=== PATIENT | female | born 1975 | race Caucasian/White ===

== ENCOUNTER 2019-12-02 10:59 | Observation (INO) ==
[2019-12-02 11:41] LABS: Basophils # 0.1 10*3/uL (0.0-0.2); Basophils % 1.3 % (0.0-0.8); Eosinophils # 0.2 10*3/uL (0.0-0.87); Eosinophils % 3.1 % (0.00-10.9); Hematocrit 22.4 VOL% (35.7-47.0); Hemoglobin 6.8 GM/DL (12.0-16.0); Immature Granulocytes % 0.6 %; Immature Granulocytes Absolute 0.04 #; Lymphocytes # 0.4 10*3/uL (1.4-4.0); Lymphocytes % 6.4 % (21.3-54.2); Mean Corpuscular HGB Conc 30.4 GM/DL (32-36); Mean Corpuscular Volume 86.8 FL (87-102); Mean Platelet Volume 10.5 FL (9.6-12.0); Neutrophils % 80.6 % (38.7-73.9); Platelet Count 285 T/CUMM (130-400); Red Blood Count 2.58 MC/CUMM (3.8-5.5); Red Cell Distribution Width 18.4 % (9.3-17.3); White Blood Count 6.4 T/CUMM (4-12)
[2019-12-02 12:04] LABS: Albumin 2.3 G/DL (3.4-5.0); Bilirubin,Total 0.5 MG/DL (0.2-1.0); Calcium 8.9 MG/DL (8.5-10.1); Total Protein 7.7 G/DL (6.4-8.3)
[2019-12-02 12:28] LABS: % Iron Saturation 8.9 % (18-50)
[2019-12-02] MEDS ORDERED: ACETAMINOPHEN 325 MG TABLET PO PRN (12:37)
[2019-12-02] MEDS ORDERED: ONDANSETRON 4 MG/2 ML VIAL IV PRN (12:37)
[2019-12-02 12:40] LABS: Folate > 24.0 NG/ML (5.4-24.0); Vitamin B12 948 PG/ML (211-911)
[2019-12-02 13:22] LABS: PT Patient Result 11.1 SECS (9.6-12.2); Risk Ratio 4.36; VLDL CHOLESTEROL 23.4 MG/DL
[2019-12-02] MEDS ORDERED: ALBUTEROL 2.5 MG/3 ML NEB RESP TX PRN (14:02)
[2019-12-02] MEDS ORDERED: SODIUM CHLORIDE 0.9% 1,000 ML IV PRN ×2 (14:02→14:03)
[2019-12-02] MEDS: FUROSEMIDE 40 MG/4 ML VIAL IV SCH (15:39)
[2019-12-02] MEDS: cefTRIAXone 1,000 MG in SYRINGE 1 EACH IV SCH (15:39)
[2019-12-02] MEDS: POTASSIUM CHLORIDE RIDER 10 MEQ in PREMIX 1 EACH IV PRN ×4 (15:40→22:24)
[2019-12-02] MEDS: AZITHROMYCIN INJ 500 MG in SODIUM CHLORIDE 0.9% 250 ML IV SCH (15:40)
[2019-12-02] MEDS ORDERED: diphenhydrAMINE CAP 25 MG CAPSULE PO PRN (15:45)
[2019-12-02] MEDS: ALBUTEROL 2.5 MG/3 ML NEB RESP TX SCH (20:05)
[2019-12-03] MEDS: POTASSIUM CHLORIDE RIDER 10 MEQ in PREMIX 1 EACH IV PRN ×7 (00:27→17:53)
[2019-12-03] MEDS: ALBUTEROL 2.5 MG/3 ML NEB RESP TX SCH ×4 (00:42→19:20)
[2019-12-03] MEDS: URSODIOL PO SCH ×3 (00:54→21:30)
[2019-12-03 06:01] LABS: Basophils # 0.1 10*3/uL (0.0-0.2); Eosinophils # 0.3 10*3/uL (0.0-0.87); Eosinophils % 5.3 % (0.00-10.9); Hematocrit 23.5 VOL% (35.7-47.0); Hemoglobin 7.7 GM/DL (12.0-16.0); Immature Granulocytes % 0.3 %; Immature Granulocytes Absolute 0.02 #; Lymphocytes # 0.4 10*3/uL (1.4-4.0); Lymphocytes % 7.1 % (21.3-54.2); Mean Corpuscular HGB Conc 32.8 GM/DL (32-36); Mean Corpuscular Volume 86.1 FL (87-102); Mean Platelet Volume 10.7 FL (9.6-12.0); Monocytes % 9.4 % (1.7-12.7); Neutrophils % 76.9 % (38.7-73.9); Platelet Count 265 T/CUMM (130-400); Red Blood Count 2.73 MC/CUMM (3.8-5.5); Red Cell Distribution Width 17.9 % (9.3-17.3); White Blood Count 6.1 T/CUMM (4-12)
[2019-12-03 06:20] LABS: Calcium 8.5 MG/DL (8.5-10.1); Osmolality,Calculated 269.4 MOS/KG (273-304)
[2019-12-03 06:36] LABS: Ferritin 29.6 ng/ml (8-252)
[2019-12-03] MEDS ORDERED: SODIUM CHLORIDE 0.9% 1,000 ML IV PRN ×2 (06:40→16:28)
[2019-12-03 07:21] LABS: Sedimentation Rate-Westergren 132 MM/HR (0-20)
[2019-12-03] MEDS ORDERED: SPIRONOLACTONE 100 MG TABLET PO SCH (09:00)
[2019-12-03] MEDS ORDERED: SPIRONOLACTONE 50 MG TABLET PO SCH (09:00)
[2019-12-03 09:29] LABS: Folate > 24.0 NG/ML (5.4-24.0); Vitamin B12 847 PG/ML (211-911)
[2019-12-03] MEDS: FUROSEMIDE 40 MG/4 ML VIAL IV SCH (09:37)
[2019-12-03] MEDS: SPIRONOLACTONE 100 MG TABLET PO SCH (09:39)
[2019-12-03] MEDS: PANTOPRAZOLE 40 MG TABLET PO SCH (09:39)
[2019-12-03] MEDS: CHOLECALCIFEROL 1,000 UNIT TABLET PO SCH (09:40)
[2019-12-03] MEDS: POTASSIUM CHLORIDE 10 MEQ TABLET PO SCH (09:40)
[2019-12-03] MEDS: VENLAFAXINE XR 75 MG CAPSULE PO SCH (09:40)
[2019-12-03] MEDS: FERROUS SULFATE 325 MG TABLET PO SCH (09:40)
[2019-12-03] MEDS: BETA CAROTENE 25000 UNIT PO SCH (09:41)
[2019-12-03] MEDS ORDERED: IRON SUCROSE 300 MG in SODIUM CHLORIDE 0.9% 100 ML IV ONE (10:30)
[2019-12-03] MEDS: cefTRIAXone 1,000 MG in SYRINGE 1 EACH IV SCH (14:22)
[2019-12-03 15:18] LABS: Hematocrit 23.6 VOL% (35.7-47.0); Hemoglobin 7.6 GM/DL (12.0-16.0)
[2019-12-03] MEDS ORDERED: TISSUE ADHESIVE 1 EACH APPLICATOR TOP ONE (16:24)
[2019-12-03] MEDS: AZITHROMYCIN INJ 500 MG in SODIUM CHLORIDE 0.9% 250 ML IV SCH (17:53)
[2019-12-03] MEDS ORDERED: ZALEPLON 5 MG CAPSULE PO PRN (18:00)
[2019-12-03] MEDS: POLYETHYLENE GLYCOL POWDER 17 GM PACK PO SCH (22:46)
[2019-12-03] MEDS: DOCUSATE SODIUM 100 MG CAPSULE PO SCH (22:46)
[2019-12-04] MEDS: ALBUTEROL 2.5 MG/3 ML NEB RESP TX SCH ×3 (00:10→12:27)
[2019-12-04] MEDS ORDERED: LEVOTHYROXINE 25 MCG TABLET PO SCH (06:30)
[2019-12-04 08:53] LABS: Basophils # 0.1 10*3/uL (0.0-0.2); Eosinophils # 0.4 10*3/uL (0.0-0.87); Eosinophils % 5.2 % (0.00-10.9); Hematocrit 29.9 VOL% (35.7-47.0); Hemoglobin 9.5 GM/DL (12.0-16.0); Immature Granulocytes % 0.4 %; Immature Granulocytes Absolute 0.03 #; Lymphocytes # 0.4 10*3/uL (1.4-4.0); Lymphocytes % 6.1 % (21.3-54.2); Mean Corpuscular HGB Conc 31.8 GM/DL (32-36); Mean Corpuscular Volume 85.7 FL (87-102); Mean Platelet Volume 9.4 FL (9.6-12.0); Monocytes % 8.2 % (1.7-12.7); Neutrophils % 79.1 % (38.7-73.9); Platelet Count 322 T/CUMM (130-400); Red Blood Count 3.49 MC/CUMM (3.8-5.5); Red Cell Distribution Width 17.2 % (9.3-17.3); White Blood Count 6.9 T/CUMM (4-12)
[2019-12-04 09:00] LABS: Hemoglobin A1 (Alkaline) 97.9 % (96.5-98.5); Hemoglobin A2 (Alkaline) 2.1 % (1.5-3.5)
[2019-12-04] MEDS ORDERED: amLODIPine 5 MG TABLET PO SCH (09:00)
[2019-12-04] MEDS ORDERED: AZITHROMYCIN 250 MG TABLET PO SCH (09:00)
[2019-12-04 09:07] LABS: Calcium 8.3 MG/DL (8.5-10.1); Osmolality,Calculated 275.8 MOS/KG (273-304)
[2019-12-04] MEDS: BETA CAROTENE 25000 UNIT PO SCH (09:49)
[2019-12-04] MEDS: SPIRONOLACTONE 100 MG TABLET PO SCH (09:49)
[2019-12-04] MEDS: DOCUSATE SODIUM 100 MG CAPSULE PO SCH (09:50)
[2019-12-04] MEDS: VENLAFAXINE XR 75 MG CAPSULE PO SCH (09:50)
[2019-12-04] MEDS: FERROUS SULFATE 325 MG TABLET PO SCH (09:50)
[2019-12-04] MEDS: FUROSEMIDE 40 MG/4 ML VIAL IV SCH (09:51)
[2019-12-04] MEDS: POTASSIUM CHLORIDE 10 MEQ TABLET PO SCH (09:51)
[2019-12-04] MEDS: POLYETHYLENE GLYCOL POWDER 17 GM PACK PO SCH (09:51)
[2019-12-04] MEDS: PANTOPRAZOLE 40 MG TABLET PO SCH (09:52)
[2019-12-04] MEDS: URSODIOL PO SCH (09:52)
[2019-12-04] MEDS: CHOLECALCIFEROL 1,000 UNIT TABLET PO SCH (09:53)
[2019-12-04 12:50] VITALS: BP 151/80
[2019-12-04 15:17] LABS: Total Protein,Pleural Fluid 3.8 G/DL
[2019-12-04 17:58] LABS: Lymphocytes,Pleural Fluid 89 %; Monocytes,Pleural Fluid 5 %; Neutrophils,Pleural Fluid 6 %
[2019-12-04 18:00] LABS: RBC,Pleural Fluid 2546 T/CUMM
== END 2019-12-04 14:40 | disposition home health service (06) ==
LOC: N.ED 10:59 → N.EDINP 10:59 → N.2W 13:27
PROVIDERS: ADMIT Hospitalist; ATTEND Hospitalist
PROC: IRTHORA (2019-12-04 10:20)

== ENCOUNTER 2020-02-12 14:24 | Observation (INO) ==
[2020-02-12] MEDS ORDERED: PANTOPRAZOLE 40 MG VIAL IV STA (15:13)
[2020-02-12] MEDS ORDERED: ONDANSETRON 4 MG/2 ML VIAL IV STA (15:13)
[2020-02-12 15:53] LABS: Basophils # 0.1 10*3/uL (0.0-0.2); Basophils % 1.1 % (0.0-0.8); Eosinophils # 0.2 10*3/uL (0.0-0.87); Eosinophils % 3.2 % (0.00-10.9); Hematocrit 24.7 VOL% (35.7-47.0); Hemoglobin 7.2 GM/DL (12.0-16.0); Immature Granulocytes % 0.3 %; Immature Granulocytes Absolute 0.02 #; Lymphocytes # 0.6 10*3/uL (1.4-4.0); Lymphocytes % 8.6 % (21.3-54.2); Mean Corpuscular HGB Conc 29.1 GM/DL (32-36); Mean Corpuscular Volume 91.1 FL (87-102); Mean Platelet Volume 10.9 FL (9.6-12.0); Neutrophils % 80.8 % (38.7-73.9); Platelet Count 263 T/CUMM (130-400); Red Blood Count 2.71 MC/CUMM (3.8-5.5); Red Cell Distribution Width 16.5 % (9.3-17.3); White Blood Count 6.5 T/CUMM (4-12)
[2020-02-12 16:36] LABS: Alanine Aminotransferase 18 U/L (13-56); Albumin 2.5 G/DL (3.4-5.0); Alkaline Phosphatase 396 U/L (45-117); Amylase 81 U/L (25-115); Aspartate Amino Transferase 27 U/L (0-37); Blood Urea Nitrogen 23 MG/DL (7-18); Calcium 8.6 MG/DL (8.5-10.1); Estimated Glom Filtration Rate 61 ML/MIN; Glucose 93 MG/DL (74-106); Osmolality,Calculated 267.5 MOS/KG (273-304); Total Protein 7.3 G/DL (6.4-8.3); Troponin I 0.026 NG/ML (0.00-0.045)
[2020-02-12] MEDS ORDERED: ALBUTEROL/IPRATROPIUM 3 ML NEB RESP TX STA (16:46)
[2020-02-12] MEDS ORDERED: cefTRIAXone 1,000 MG in SODIUM CHLORIDE 0.9% 100 ML IV STA (16:46)
[2020-02-12] MEDS ORDERED: AZITHROMYCIN INJ 500 MG in SODIUM CHLORIDE 0.9% 250 ML IV STA (16:47)
[2020-02-12 17:39] LABS: Anisocytosis Slight; Macrocytosis Slight; Polychromasia Few
[2020-02-12 17:39] LABS: Apearance,Urine CLEAR (Clear); Bacteria,Urine Occasional /HPF (Few); Bilirubin,Urine Negative (Negative); Blood, Urine Negative (Negative); Glucose,Urine (UA) Negative (Negative); Hyaline Casts,Urine 1 /LPF (0-3); Ketones,Urine Negative (Negative); Mucus,Urine Occasional /LPF (Occasional); Nitrite,Urine Negative (Negative); Protein,Urine Negative; RBC,Urine 1 /HPF (0-4); Squamous Epithelial Cell,Urine Occasional /HPF (0-10); Urine Color Yellow (Yellow); Urine Specific Gravity 1.006 (1.001-1.035); Urine Urobilinogen < 2.0 EU/DL (0.2-1.0); WBC,Urine <1 /HPF (0-6)
[2020-02-12 17:40] LABS: Hypochromasia Slight; Platelet Estimate Adequate
[2020-02-12] MEDS ORDERED: ONDANSETRON 4 MG/2 ML VIAL IV PRN (18:38)
[2020-02-12] MEDS ORDERED: ALBUTEROL/IPRATROPIUM 3 ML NEB RESP TX PRN (18:38)
[2020-02-12] MEDS ORDERED: SODIUM CHLORIDE 0.9% 1,000 ML IV PRN (18:38)
[2020-02-12] MEDS ORDERED: MAGNESIUM SULF RIDER 4 GM in PREMIX 1 EACH IV PRN (18:44)
[2020-02-12] MEDS ORDERED: MAGNESIUM SULF RIDER 2 GM in PREMIX 1 EACH IV PRN (18:44)
[2020-02-12] MEDS ORDERED: ENOXAPARIN 30 MG/0.3 ML SYRINGE SUBCUT SCH (21:00)
[2020-02-12] MEDS: BENZONATATE 100 MG CAPSULE PO SCH (23:17)
[2020-02-13] MEDS: cefTRIAXone 1,000 MG in SYRINGE 1 EACH IV SCH ×2 (02:32→22:22)
[2020-02-13] MEDS: POTASSIUM CHLORIDE 20 MEQ TABLET PO PRN ×2 (05:03→06:36)
[2020-02-13] MEDS ORDERED: diphenhydrAMINE 50 MG/1 ML VIAL IV ONE ×2 (05:46→11:44)
[2020-02-13] MEDS ORDERED: PANTOPRAZOLE 40 MG TABLET PO SCH (09:00)
[2020-02-13 09:18] LABS: Basophils # 0.1 10*3/uL (0.0-0.2); Eosinophils # 0.3 10*3/uL (0.0-0.87); Eosinophils % 3.8 % (0.00-10.9); Hematocrit 25.7 VOL% (35.7-47.0); Hemoglobin 7.6 GM/DL (12.0-16.0); Immature Granulocytes % 0.3 %; Immature Granulocytes Absolute 0.02 #; Lymphocytes # 0.5 10*3/uL (1.4-4.0); Lymphocytes % 6.8 % (21.3-54.2); Mean Corpuscular HGB Conc 29.6 GM/DL (32-36); Mean Corpuscular Volume 93.1 FL (87-102); Monocytes % 8.2 % (1.7-12.7); Neutrophils % 79.9 % (38.7-73.9); Platelet Count 304 T/CUMM (130-400); Red Blood Count 2.76 MC/CUMM (3.8-5.5); Red Cell Distribution Width 15.9 % (9.3-17.3); White Blood Count 7.3 T/CUMM (4-12)
[2020-02-13] MEDS: BENZONATATE 100 MG CAPSULE PO SCH ×3 (09:18→20:52)
[2020-02-13 09:44] LABS: Albumin 2.4 G/DL (3.4-5.0); Bilirubin,Total 0.7 MG/DL (0.2-1.0); Calcium 8.8 MG/DL (8.5-10.1); Osmolality,Calculated 264.7 MOS/KG (273-304); Thyroid Stimulating Hormone 8.47 uIU/ml (0.358-3.74); Total Protein 7.5 G/DL (6.4-8.3)
[2020-02-13] MEDS ORDERED: ALBUTEROL 2.5 MG/3 ML NEB RESP TX PRN (11:35)
[2020-02-13] MEDS ORDERED: BETA CAROTENE 25000 UNIT PO SCH (11:45)
[2020-02-13 11:51] LABS: Hematocrit 26.7 VOL% (35.7-47.0); Hemoglobin 8.2 GM/DL (12.0-16.0)
[2020-02-13 12:36] LABS: INR 0.9
[2020-02-13 12:47] LABS: Albumin 2.4 G/DL (3.4-5.0); Bilirubin,Direct 0.2 MG/DL (0.0-0.20); Bilirubin,Indirect 0.3 MG/DL (0.0-1.0); Bilirubin,Total 0.5 MG/DL (0.2-1.0); Total Protein 7.4 G/DL (6.4-8.3)
[2020-02-13] MEDS: SPIRONOLACTONE 100 MG TABLET PO SCH ×2 (12:55→20:52)
[2020-02-13] MEDS: VENLAFAXINE XR 75 MG CAPSULE PO SCH (12:55)
[2020-02-13] MEDS: FUROSEMIDE 80 MG TABLET PO SCH (12:56)
[2020-02-13] MEDS: POTASSIUM CHLORIDE 20 MEQ TABLET PO SCH (12:56)
[2020-02-13] MEDS: RIFAXIMIN 550 MG TABLET PO SCH ×2 (12:56→20:53)
[2020-02-13] MEDS: FERROUS SULFATE 325 MG TABLET PO SCH (12:56)
[2020-02-13] MEDS: CHOLECALCIFEROL 1,000 UNIT TABLET PO SCH (12:57)
[2020-02-13] MEDS: VITAMIN A 8000 UNIT PO SCH (13:13)
[2020-02-13] MEDS ORDERED: methylPREDNISolone SOD SUC 40 MG/1 ML VIAL IV ONE (17:18)
[2020-02-13] MEDS ORDERED: URSODIOL PO SCH (19:00)
[2020-02-13] MEDS ORDERED: AZITHROMYCIN INJ 500 MG in SODIUM CHLORIDE 0.9% 250 ML IV SCH (19:00)
[2020-02-13] MEDS: LACTULOSE 20 GM/30 ML UDCUP PO SCH (20:52)
[2020-02-13] MEDS: PANTOPRAZOLE 40 MG TABLET PO SCH (20:53)
[2020-02-13] MEDS ORDERED: RIFAXIMIN 550 MG TABLET PO SCH (21:00)
[2020-02-13] MEDS ORDERED: ZALEPLON 5 MG CAPSULE PO SCH (21:00)
[2020-02-13] MEDS ORDERED: hydrOXYzine HCL 10 MG TABLET PO SCH (21:00)
[2020-02-14 05:46] LABS: Basophils % 0.5 % (0.0-0.8); Hematocrit 24.3 VOL% (35.7-47.0); Hemoglobin 7.4 GM/DL (12.0-16.0); Immature Granulocytes % 0.3 %; Immature Granulocytes Absolute 0.02 #; Lymphocytes # 0.3 10*3/uL (1.4-4.0); Lymphocytes % 4.6 % (21.3-54.2); Mean Corpuscular HGB Conc 30.5 GM/DL (32-36); Mean Corpuscular Volume 89.3 FL (87-102); Mean Platelet Volume 10.5 FL (9.6-12.0); Monocytes % 2.2 % (1.7-12.7); Neutrophils % 92.4 % (38.7-73.9); Platelet Count 268 T/CUMM (130-400); Red Blood Count 2.72 MC/CUMM (3.8-5.5); White Blood Count 5.9 T/CUMM (4-12)
[2020-02-14 06:01] LABS: Albumin 2.4 G/DL (3.4-5.0); Bilirubin,Total 0.5 MG/DL (0.2-1.0); Osmolality,Calculated 272.4 MOS/KG (273-304); Total Protein 7.6 G/DL (6.4-8.3)
[2020-02-14 06:24] LABS: Anisocytosis 2+; Hypochromasia 1+; Lymphocytes 4 % (20-55); Microcytosis 1+; Ovalocytes 1+; Platelet Estimate Adequate; Segmented Neutrophils 96 % (50-85); Total Cells Counted 100
[2020-02-14] MEDS ORDERED: LEVOTHYROXINE 25 MCG TABLET PO SCH (06:30)
[2020-02-14] MEDS ORDERED: amLODIPine 5 MG TABLET PO SCH (09:00)
[2020-02-14] MEDS ORDERED: URSODIOL PO SCH (09:00)
[2020-02-14] MEDS ORDERED: MULTIVITAMIN (CENTRUM) TABLET PO SCH (09:00)
[2020-02-14] MEDS ORDERED: AZITHROMYCIN 250 MG TABLET PO SCH (09:00)
[2020-02-14] MEDS: VITAMIN A 8000 UNIT PO SCH (09:46)
[2020-02-14] MEDS: BENZONATATE 100 MG CAPSULE PO SCH ×2 (09:46→16:22)
[2020-02-14] MEDS: VENLAFAXINE XR 75 MG CAPSULE PO SCH (09:46)
[2020-02-14] MEDS: SPIRONOLACTONE 100 MG TABLET PO SCH (09:47)
[2020-02-14] MEDS: POTASSIUM CHLORIDE 20 MEQ TABLET PO SCH (09:47)
[2020-02-14] MEDS: PANTOPRAZOLE 40 MG TABLET PO SCH (09:47)
[2020-02-14] MEDS: FUROSEMIDE 80 MG TABLET PO SCH (09:47)
[2020-02-14] MEDS: FERROUS SULFATE 325 MG TABLET PO SCH (09:47)
[2020-02-14] MEDS: CHOLECALCIFEROL 1,000 UNIT TABLET PO SCH (09:47)
[2020-02-14] MEDS: LACTULOSE 20 GM/30 ML UDCUP PO SCH (09:47)
[2020-02-14] MEDS: RIFAXIMIN 550 MG TABLET PO SCH (09:47)
[2020-02-14] MEDS ORDERED: SODIUM CHLORIDE 0.9% 1,000 ML IV PRN (11:06)
[2020-02-14] MEDS ORDERED: diphenhydrAMINE 50 MG/1 ML VIAL IV PRN (11:06)
[2020-02-14] MEDS ORDERED: ACETAMINOPHEN 325 MG TABLET PO PRN (11:06)
[2020-02-14 18:14] LABS: Hematocrit 26.6 VOL% (35.7-47.0); Hemoglobin 7.9 GM/DL (12.0-16.0)
[2020-02-14 18:40] VITALS: BP 146/76
== END 2020-02-14 19:03 | disposition home or self-care (01) ==
LOC: N.EDINP 14:24 → N.ED 14:24 → SUATTDRO 19:13 → N.EDINP 20:45 → N.5E 23:47
PROVIDERS: ADMIT Family Medicine; ATTEND Internal Medicine

== ENCOUNTER 2020-03-24 16:16 | Observation (INO) ==
[2020-03-24 17:30] LABS: Basophils # 0.1 10*3/uL (0.0-0.2); Basophils % 1.4 % (0.0-0.8); Eosinophils # 0.2 10*3/uL (0.0-0.87); Eosinophils % 3.6 % (0.00-10.9); Hematocrit 24.2 VOL% (35.7-47.0); Hemoglobin 7.2 GM/DL (12.0-16.0); Immature Granulocytes % 0.4 %; Immature Granulocytes Absolute 0.02 #; Lymphocytes # 0.5 10*3/uL (1.4-4.0); Lymphocytes % 9.2 % (21.3-54.2); Mean Corpuscular HGB Conc 29.8 GM/DL (32-36); Mean Corpuscular Volume 94.2 FL (87-102); Monocytes % 7.3 % (1.7-12.7); Neutrophils % 78.1 % (38.7-73.9); Platelet Count 305 T/CUMM (130-400); Red Blood Count 2.57 MC/CUMM (3.8-5.5); Red Cell Distribution Width 16.2 % (9.3-17.3); White Blood Count 5.6 T/CUMM (4-12)
[2020-03-24] MEDS ORDERED: SODIUM CHLORIDE 0.9% 1,000 ML IV PRN (17:33)
[2020-03-24 18:08] LABS: Albumin 2.7 G/DL (3.4-5.0); Bilirubin,Total 0.5 MG/DL (0.2-1.0); Osmolality,Calculated 263.7 MOS/KG (273-304); Total Protein 8.2 G/DL (6.4-8.3)
[2020-03-24] MEDS ORDERED: POTASSIUM CHLORIDE 20 MEQ TABLET PO PRN (20:08)
[2020-03-24] MEDS ORDERED: ALBUTEROL 2.5 MG/3 ML NEB RESP TX PRN (20:08)
[2020-03-24] MEDS ORDERED: ONDANSETRON 4 MG/2 ML VIAL IV PRN (20:08)
[2020-03-24] MEDS ORDERED: MAGNESIUM SULF RIDER 4 GM in PREMIX 1 EACH IV PRN (20:08)
[2020-03-24] MEDS ORDERED: MAGNESIUM SULF RIDER 2 GM in PREMIX 1 EACH IV PRN (20:08)
[2020-03-24] MEDS ORDERED: hydrOXYzine HCL 10 MG TABLET PO SCH (21:00)
[2020-03-24] MEDS ORDERED: NON-FORMULARY MEDICATION (Ursodiol 1,000 MG) PO SCH (21:00)
[2020-03-24] MEDS ORDERED: cefTRIAXone 1,000 MG in SYRINGE 1 EACH IV SCH (21:00)
[2020-03-24] MEDS: FERROUS SULFATE 325 MG TABLET PO SCH (22:12)
[2020-03-24] MEDS: SPIRONOLACTONE 100 MG TABLET PO SCH (22:12)
[2020-03-24] MEDS: PANTOPRAZOLE 40 MG TABLET PO SCH (22:13)
[2020-03-24] MEDS: diphenhydrAMINE 50 MG/1 ML VIAL IV PRN (23:20)
[2020-03-25] MEDS: diphenhydrAMINE 50 MG/1 ML VIAL IV PRN (06:01)
[2020-03-25] MEDS ORDERED: LEVOTHYROXINE 25 MCG TABLET PO SCH (06:30)
[2020-03-25 08:06] LABS: Basophils # 0.1 10*3/uL (0.0-0.2); Basophils % 1.1 % (0.0-0.8); Eosinophils # 0.2 10*3/uL (0.0-0.87); Hematocrit 25.9 VOL% (35.7-47.0); Hemoglobin 7.9 GM/DL (12.0-16.0); Immature Granulocytes % 0.3 %; Immature Granulocytes Absolute 0.02 #; Lymphocytes # 0.4 10*3/uL (1.4-4.0); Lymphocytes % 6.1 % (21.3-54.2); Mean Corpuscular HGB Conc 30.5 GM/DL (32-36); Mean Corpuscular Volume 91.2 FL (87-102); Mean Platelet Volume 8.9 FL (9.6-12.0); Monocytes % 9.4 % (1.7-12.7); Neutrophils % 80.1 % (38.7-73.9); Platelet Count 337 T/CUMM (130-400); Red Blood Count 2.84 MC/CUMM (3.8-5.5); Red Cell Distribution Width 16.6 % (9.3-17.3); White Blood Count 6.1 T/CUMM (4-12)
[2020-03-25 08:16] LABS: PT Patient Result 10.9 SECS (9.8-11.9)
[2020-03-25] MEDS ORDERED: hydrOXYzine HCL 25 MG TABLET PO PRN (08:23)
[2020-03-25 08:31] LABS: Calcium 8.6 MG/DL (8.5-10.1); Osmolality,Calculated 270.2 MOS/KG (273-304)
[2020-03-25] MEDS ORDERED: LINACLOTIDE 145 MCG CAPSULE PO SCH (09:00)
[2020-03-25] MEDS ORDERED: VITAMIN A 8000 UNIT PO SCH (09:00)
[2020-03-25] MEDS ORDERED: VENLAFAXINE XR 75 MG CAPSULE PO SCH (09:00)
[2020-03-25] MEDS ORDERED: MULTIVITAMIN (CENTRUM) TABLET PO SCH (09:00)
[2020-03-25] MEDS ORDERED: CHOLECALCIFEROL 1,000 UNIT TABLET PO SCH (09:00)
[2020-03-25] MEDS ORDERED: POTASSIUM CHLORIDE 10 MEQ TABLET PO SCH (09:00)
[2020-03-25] MEDS ORDERED: BETA CAROTENE 25000 UNIT PO SCH (09:00)
[2020-03-25] MEDS ORDERED: FUROSEMIDE 80 MG TABLET PO SCH (09:00)
[2020-03-25] MEDS ORDERED: amLODIPine 5 MG TABLET PO SCH (09:00)
[2020-03-25] MEDS ORDERED: AZITHROMYCIN 250 MG TABLET PO SCH (09:00)
[2020-03-25] MEDS: SPIRONOLACTONE 100 MG TABLET PO SCH (10:10)
[2020-03-25] MEDS: FERROUS SULFATE 325 MG TABLET PO SCH (10:10)
[2020-03-25] MEDS: PANTOPRAZOLE 40 MG TABLET PO SCH (10:11)
[2020-03-25 12:11] VITALS: BP 119/78
[2020-03-26] MEDS ORDERED: AZITHROMYCIN 250 MG TABLET PO SCH (09:00)
== END 2020-03-25 15:04 | disposition home or self-care (01) ==
LOC: N.ED 16:16 → N.EDINP 16:16 → N.3E 19:59
PROVIDERS: ADMIT Family Medicine; ATTEND Family Medicine

== ENCOUNTER 2020-05-31 08:03 | Inpatient (IN) ==
[2020-05-31 08:36] LABS: Basophils % 0.3 % (0.0-0.8); Eosinophils # 0.2 10*3/uL (0.0-0.87); Eosinophils % 3.2 % (0.00-10.9); Immature Granulocytes % 0.3 %; Immature Granulocytes Absolute 0.02 #; Lymphocytes # 0.6 10*3/uL (1.4-4.0); Mean Corpuscular HGB Conc 29.1 GM/DL (32-36); Mean Corpuscular Volume 94.4 FL (87-102); Mean Platelet Volume 10.1 FL (9.6-12.0); Monocytes % 8.1 % (1.7-12.7); Neutrophils % 78.1 % (38.7-73.9); Platelet Count 293 T/CUMM (130-400); Red Blood Count 1.42 MC/CUMM (3.8-5.5); Red Cell Distribution Width 16.2 % (9.3-17.3); White Blood Count 5.9 T/CUMM (4-12)
[2020-05-31] MEDS ORDERED: SODIUM CHLORIDE 0.9% 1,000 ML IV STA (08:43)
[2020-05-31] MEDS ORDERED: PANTOPRAZOLE 40 MG VIAL IV STA (08:43)
[2020-05-31] MEDS ORDERED: ONDANSETRON 4 MG/2 ML VIAL IV PRN (08:43)
[2020-05-31 08:47] LABS: Hematocrit 13.4 VOL% (35.7-47.0); Hemoglobin 3.9 GM/DL (12.0-16.0)
[2020-05-31 08:55] LABS: Alanine Aminotransferase 34 U/L (13-56); Albumin 2.1 G/DL (3.4-5.0); Alkaline Phosphatase 560 U/L (45-117); Aspartate Amino Transferase 60 U/L (0-37); Bilirubin,Total < 0.39 MG/DL (0.2-1.0); Blood Urea Nitrogen 40 MG/DL (7-18); Calcium 8.2 MG/DL (8.5-10.1); Estimated Glom Filtration Rate 52 ML/MIN; Glucose 112 MG/DL (74-106); Total Protein 6.7 G/DL (6.4-8.3)
[2020-05-31 09:07] LABS: Hypochromasia 1+; Microcytosis 1+; Platelet Estimate Normal; Polychromasia Slight
[2020-05-31 09:13] LABS: PT Patient Result 11.1 SECS (9.8-11.9); Partial Thromboplastin Time 23.8 SECS (23.9-33.8)
[2020-05-31] MEDS ORDERED: hydrALAZINE 20 MG/1 ML VIAL IV PRN (10:22)
[2020-05-31] MEDS ORDERED: guaiFENesin/DM ER 600-30 MG TABLET PO PRN (10:22)
[2020-05-31] MEDS ORDERED: ACETAMINOPHEN 325 MG TABLET PO PRN (10:22)
[2020-05-31] MEDS ORDERED: LORazepam 2 MG/1 ML VIAL ONE (10:26)
[2020-05-31] MEDS ORDERED: SODIUM CHLORIDE 0.9% 1,000 ML IV PRN (10:29)
[2020-05-31] MEDS ORDERED: LORazepam 2 MG/1 ML VIAL IV STA (10:37)
[2020-05-31 10:58] LABS: Risk Ratio 5.62; Thyroid Stimulating Hormone 17.1 uIU/ml (0.358-3.74); VLDL CHOLESTEROL 41.8 MG/DL
[2020-05-31 14:15] LABS: Apearance,Urine CLEAR (Clear); Bilirubin,Urine Negative (Negative); Blood, Urine Negative (Negative); Glucose,Urine (UA) Negative (Negative); Ketones,Urine Negative (Negative); Mucus,Urine Occasional /LPF (Occasional); Nitrite,Urine Negative (Negative); Protein,Urine Negative; Squamous Epithelial Cell,Urine Occasional /HPF (0-10); Urine Color Yellow (Yellow); Urine Specific Gravity 1.008 (1.001-1.035); Urine Urobilinogen < 2.0 EU/DL (0.2-1.0)
[2020-05-31] MEDS: diphenhydrAMINE CAP 25 MG CAPSULE PO PRN ×2 (16:45→21:50)
[2020-05-31] MEDS: FUROSEMIDE 40 MG/4 ML VIAL IV SCH (16:45)
[2020-05-31 17:53] LABS: Hemoglobin 5.8 GM/DL (12.0-16.0)
[2020-05-31] MEDS: FERROUS SULFATE 325 MG TABLET PO SCH (22:15)
[2020-05-31] MEDS: RIFAXIMIN 550 MG TABLET PO SCH (22:15)
[2020-05-31] MEDS: SPIRONOLACTONE 100 MG TABLET PO SCH (22:15)
[2020-05-31] MEDS: PANTOPRAZOLE 40 MG VIAL IV SCH (23:47)
[2020-06-01] MEDS ORDERED: OCTREOTIDE 100 MCG/ML SYRINGE IV ONE (01:00)
[2020-06-01] MEDS: OCTREOTIDE 500 MCG in SODIUM CHLORIDE 0.9% 100 ML IV SCH ×4 (01:20→22:50)
[2020-06-01 02:08] LABS: Basophils # 0.1 10*3/uL (0.0-0.2); Basophils % 1.1 % (0.0-0.8); Eosinophils # 0.3 10*3/uL (0.0-0.87); Eosinophils % 3.8 % (0.00-10.9); Hematocrit 20.7 VOL% (35.7-47.0); Immature Granulocytes % 0.4 %; Immature Granulocytes Absolute 0.03 #; Lymphocytes # 0.6 10*3/uL (1.4-4.0); Lymphocytes % 8.2 % (21.3-54.2); Mean Corpuscular HGB Conc 30.9 GM/DL (32-36); Mean Platelet Volume 9.9 FL (9.6-12.0); Monocytes % 13.6 % (1.7-12.7); NRBC # 0.07 10*3/uL; Neutrophils % 72.9 % (38.7-73.9); Platelet Count 224 T/CUMM (130-400); Red Cell Distribution Width 15.9 % (9.3-17.3)
[2020-06-01 02:11] LABS: Hemoglobin 6.4 GM/DL (12.0-16.0)
[2020-06-01] MEDS ORDERED: SODIUM CHLORIDE 0.9% 1,000 ML IV PRN ×2 (02:23→02:49)
[2020-06-01 02:29] LABS: Albumin 2.2 G/DL (3.4-5.0); Bilirubin,Total 1.1 MG/DL (0.2-1.0); Calcium 8.3 MG/DL (8.5-10.1); Osmolality,Calculated 282.8 MOS/KG (273-304); Total Protein 6.5 G/DL (6.4-8.3)
[2020-06-01] MEDS ORDERED: LEVOTHYROXINE 75 MCG TABLET PO SCH (07:00)
[2020-06-01] MEDS ORDERED: fentaNYL 100 MCG/2 ML VIAL ONE (07:15)
[2020-06-01] MEDS: LACTATED RINGERS 1,000 ML IV SCH (07:18)
[2020-06-01 07:31] LABS: Basophils # 0.1 10*3/uL (0.0-0.2); Basophils % 1.6 % (0.0-0.8); Eosinophils # 0.3 10*3/uL (0.0-0.87); Eosinophils % 4.7 % (0.00-10.9); Hematocrit 24.6 VOL% (35.7-47.0); Immature Granulocytes % 0.8 %; Immature Granulocytes Absolute 0.05 #; Lymphocytes # 0.4 10*3/uL (1.4-4.0); Lymphocytes % 7.2 % (21.3-54.2); Mean Corpuscular HGB Conc 31.7 GM/DL (32-36); Mean Corpuscular Volume 90.1 FL (87-102); Mean Platelet Volume 10.1 FL (9.6-12.0); Monocytes % 11.8 % (1.7-12.7); NRBC # 0.05 10*3/uL; Neutrophils % 73.9 % (38.7-73.9); Platelet Count 206 T/CUMM (130-400); Red Blood Count 2.73 MC/CUMM (3.8-5.5); Red Cell Distribution Width 16.1 % (9.3-17.3); White Blood Count 6.1 T/CUMM (4-12)
[2020-06-01 07:37] LABS: Hemoglobin 7.8 GM/DL (12.0-16.0)
[2020-06-01] MEDS ORDERED: ALBUTEROL INHALER 18 GM INH ONE (08:47)
[2020-06-01] MEDS ORDERED: LEVOTHYROXINE 50 MCG TABLET PO SCH (09:00)
[2020-06-01] MEDS ORDERED: SUCCINYLCHOLINE 200 MG/10 ML VIAL ONE (09:00)
[2020-06-01] MEDS ORDERED: POTASSIUM CHLORIDE 20 MEQ TABLET PO SCH (09:00)
[2020-06-01] MEDS ORDERED: ROCURONIUM 100 MG/10 ML VIAL IV ONE (09:00)
[2020-06-01] MEDS ORDERED: LIDOCAINE 2% 5 ML VIAL ONE (09:00)
[2020-06-01] MEDS ORDERED: VENLAFAXINE XR 75 MG CAPSULE PO SCH (09:00)
[2020-06-01] MEDS ORDERED: SEVOFLURANE 1 UNIT/15 MINUTE INH ONE (09:00)
[2020-06-01] MEDS ORDERED: propofoL 200 MG/20 ML VIAL IV ONE (09:00)
[2020-06-01] MEDS ORDERED: METOCLOPRAMIDE 10 MG/2 ML VIAL ONE (09:06)
[2020-06-01 10:22] LABS: ABG Base Excess -0.8 MMOL/L (-2.5-2.5); ABG HCO3 23.7 MMOL/L (20-26); ABG Oxygen Saturation 92.1 % (95-100); ABG PH 7.217 (7.35-7.45); ABG PO2 72.4 MM HG (80-95); ABG TCO2 26.7 MMOL/L (23-27); Allen Test Positive; Pt O2 Delivery Device Ventilator
[2020-06-01 10:24] LABS: ABG PCO2 69.3 MM HG (35-48)
[2020-06-01] MEDS ORDERED: CALCIUM GLUCONATE 1,000 MG in SODIUM CHLORIDE 0.9% 100 ML IV ONE (11:00)
[2020-06-01] MEDS: DEXMEDETOMIDINE 200 MCG in SODIUM CHLORIDE 0.9% 48 ML IV PRN (11:01)
[2020-06-01] MEDS ORDERED: FUROSEMIDE 40 MG/4 ML VIAL IV ONE (11:21)
[2020-06-01] MEDS ORDERED: PHENYLEPHRINE DRIP 40 MG/250 ML PREMIX IV ONE (11:23)
[2020-06-01] MEDS: PHENYLEPHRINE DRIP 40 MG/250 ML PREMIX IV PRN (11:25)
[2020-06-01] MEDS ORDERED: NOREPINEPHRINE 4 MG/4 ML VIAL IV ONE (11:28)
[2020-06-01] MEDS ORDERED: SODIUM BICARBONATE 50 MEQ/50 ML VIAL IV ONE ×2 (11:33→11:40)
[2020-06-01] MEDS ORDERED: MIDAZOLAM 10 MG/2 ML VIAL ONE (11:36)
[2020-06-01] MEDS ORDERED: LACTATED RINGERS 1,000 ML IV ONE (11:37)
[2020-06-01] MEDS ORDERED: MIDAZOLAM 2 MG/2 ML VIAL IV ONE ×2 (11:38→11:58)
[2020-06-01] MEDS ORDERED: ALBUMIN 25% 25 GM in PREMIX 1 EACH IV ONE (11:38)
[2020-06-01] MEDS ORDERED: VECURONIUM 10 MG VIAL IV ONE ×2 (11:55→12:15)
[2020-06-01] MEDS: FERROUS SULFATE 325 MG TABLET PO SCH ×2 (12:05→22:38)
[2020-06-01] MEDS: VENLAFAXINE 75 MG TABLET PER TUBE SCH ×2 (12:05→22:38)
[2020-06-01] MEDS: SPIRONOLACTONE 100 MG TABLET PO SCH ×2 (12:05→22:38)
[2020-06-01] MEDS: RIFAXIMIN 550 MG TABLET PO SCH ×2 (12:05→22:39)
[2020-06-01] MEDS: POTASSIUM CHLORIDE 20 MEQ/15 ML UDCUP PO SCH (12:06)
[2020-06-01 12:10] LABS: Basophils # 0.1 10*3/uL (0.0-0.2); Basophils % 1.7 % (0.0-0.8); Eosinophils # 0.2 10*3/uL (0.0-0.87); Eosinophils % 2.7 % (0.00-10.9); Hematocrit 27.4 VOL% (35.7-47.0); Hemoglobin 8.7 GM/DL (12.0-16.0); Immature Granulocytes % 0.7 %; Immature Granulocytes Absolute 0.06 #; Lymphocytes # 0.5 10*3/uL (1.4-4.0); Lymphocytes % 6.2 % (21.3-54.2); Mean Corpuscular HGB Conc 31.8 GM/DL (32-36); Mean Platelet Volume 10.8 FL (9.6-12.0); Monocytes % 3.4 % (1.7-12.7); Neutrophils % 85.3 % (38.7-73.9); Platelet Count 338 T/CUMM (130-400); Red Blood Count 3.01 MC/CUMM (3.8-5.5); Red Cell Distribution Width 16.6 % (9.3-17.3); White Blood Count 8.2 T/CUMM (4-12)
[2020-06-01 12:18] LABS: ABG Base Excess -0.3 MMOL/L (-2.5-2.5); ABG HCO3 23.9 MMOL/L (20-26); ABG Oxygen Saturation 80.4 % (95-100); ABG PCO2 56.5 MM HG (35-48); ABG PH 7.288 (7.35-7.45); ABG PO2 49.4 MM HG (80-95); ABG TCO2 25.2 MMOL/L (23-27)
[2020-06-01] MEDS: FUROSEMIDE 40 MG/4 ML VIAL IV SCH ×2 (12:27→17:43)
[2020-06-01 12:40] LABS: Albumin 2.3 G/DL (3.4-5.0); Bilirubin,Direct 0.48 MG/DL (0.0-0.20); Bilirubin,Indirect 0.5 MG/DL (0.0-1.0)
[2020-06-01] MEDS: CISATRACURIUM 200 MG in SODIUM CHLORIDE 0.9% 180 ML IV PRN (12:40)
[2020-06-01 12:50] LABS: Calcium 8.4 MG/DL (8.5-10.1); Osmolality,Calculated 289.5 MOS/KG (273-304)
[2020-06-01 13:16] LABS: PT Patient Result 11.1 SECS (9.8-11.9); Partial Thromboplastin Time 23.2 SECS (23.9-33.8)
[2020-06-01] MEDS: PIPERACILLIN/TAZOBACTAM 3,375 MG in SODIUM CHLORIDE 0.9% 100 ML IV SCH ×2 (15:47→23:41)
[2020-06-01] MEDS: LEVOTHYROXINE 100 MCG VIAL IV SCH (15:47)
[2020-06-01] MEDS: PANTOPRAZOLE 40 MG VIAL IV SCH ×2 (15:51→23:30)
[2020-06-01] MEDS: methylPREDNISolone SOD SUC 40 MG/1 ML VIAL IV SCH ×2 (15:58→23:32)
[2020-06-01] MEDS ORDERED: NOREPINEPHRINE 8 MG in SODIUM CHLORIDE 0.9% 242 ML IV PRN (16:33)
[2020-06-01] MEDS: METOCLOPRAMIDE 10 MG/2 ML VIAL IV SCH ×2 (17:48→23:39)
[2020-06-01 17:49] LABS: Hemoglobin 8.2 GM/DL (12.0-16.0)
[2020-06-01 18:46] LABS: Apearance,Urine CLEAR (Clear); Bacteria,Urine Occasional /HPF (Few); Bilirubin,Urine Negative (Negative); Blood, Urine Small mg/dL (Negative); Glucose,Urine (UA) Negative (Negative); Hyaline Casts,Urine 23 /LPF (0-3); Ketones,Urine Negative (Negative); Mucus,Urine Occasional /LPF (Occasional); Nitrite,Urine Negative (Negative); Protein,Urine Negative; RBC,Urine 5 /HPF (0-4); Squamous Epithelial Cell,Urine Occasional /HPF (0-10); Urine Color Yellow (Yellow); Urine Specific Gravity 1.008 (1.001-1.035); Urine Urobilinogen < 2.0 EU/DL (0.2-1.0); WBC,Urine 3 /HPF (0-6)
[2020-06-02] MEDS: CISATRACURIUM 200 MG in SODIUM CHLORIDE 0.9% 180 ML IV PRN (03:15)
[2020-06-02] MEDS: OCTREOTIDE 500 MCG in SODIUM CHLORIDE 0.9% 100 ML IV SCH ×5 (04:18→23:13)
[2020-06-02 05:04] LABS: Bilirubin,Total 1.1 MG/DL (0.2-1.0); Calcium 8.5 MG/DL (8.5-10.1); Osmolality,Calculated 294.4 MOS/KG (273-304); Total Protein 6.1 G/DL (6.4-8.3)
[2020-06-02 05:11] LABS: Basophils # 0.1 10*3/uL (0.0-0.2); Basophils % 0.5 % (0.0-0.8); Eosinophils % 0.1 % (0.00-10.9); Hematocrit 23.4 VOL% (35.7-47.0); Hemoglobin 7.9 GM/DL (12.0-16.0); Immature Granulocytes % 0.4 %; Immature Granulocytes Absolute 0.07 #; Lymphocytes # 0.7 10*3/uL (1.4-4.0); Lymphocytes % 3.8 % (21.3-54.2); Mean Corpuscular HGB Conc 33.8 GM/DL (32-36); Mean Platelet Volume 12.5 FL (9.6-12.0); Monocytes % 7.1 % (1.7-12.7); NRBC # 0.02 10*3/uL; Neutrophils % 88.1 % (38.7-73.9); Red Blood Count 2.66 MC/CUMM (3.8-5.5); Red Cell Distribution Width 17.9 % (9.3-17.3); White Blood Count 19.2 T/CUMM (4-12)
[2020-06-02 05:13] LABS: Platelet Count 189 T/CUMM (130-400)
[2020-06-02 05:38] LABS: ABG Base Excess 0.3 MMOL/L (-2.5-2.5); ABG HCO3 24.7 MMOL/L (20-26); ABG PCO2 35.4 MM HG (35-48); ABG PH 7.443 (7.35-7.45); ABG TCO2 22.7 MMOL/L (23-27)
[2020-06-02] MEDS: METOCLOPRAMIDE 10 MG/2 ML VIAL IV SCH ×4 (06:15→23:12)
[2020-06-02] MEDS: methylPREDNISolone SOD SUC 40 MG/1 ML VIAL IV SCH ×3 (06:17→21:20)
[2020-06-02] MEDS: PIPERACILLIN/TAZOBACTAM 3,375 MG in SODIUM CHLORIDE 0.9% 100 ML IV SCH ×3 (06:19→21:20)
[2020-06-02 06:20] LABS: Anisocytosis 1+; Band Neutrophils 13 % (0-10); Hypochromasia 1+; Lymphocytes 2 % (20-55); Metamyelocytes 1 %; Microcytosis 1+; Polychromasia Slight; Segmented Neutrophils 78 % (50-85); Total Cells Counted 100
[2020-06-02] MEDS: LACTATED RINGERS 1,000 ML IV SCH (07:29)
[2020-06-02] MEDS: PHENYLEPHRINE DRIP 40 MG/250 ML PREMIX IV PRN (08:15)
[2020-06-02] MEDS ORDERED: SODIUM CHLORIDE 0.9% 1,000 ML IV PRN ×2 (08:27→08:32)
[2020-06-02] MEDS: SPIRONOLACTONE 100 MG TABLET PO SCH (08:29)
[2020-06-02] MEDS: POTASSIUM CHLORIDE 20 MEQ/15 ML UDCUP PO SCH (08:30)
[2020-06-02] MEDS: FERROUS SULFATE 325 MG TABLET PO SCH ×2 (08:30→20:34)
[2020-06-02] MEDS: VENLAFAXINE 75 MG TABLET PER TUBE SCH ×2 (08:30→20:34)
[2020-06-02] MEDS: RIFAXIMIN 550 MG TABLET PO SCH ×2 (08:30→20:34)
[2020-06-02] MEDS ORDERED: EPINEPHrine 1 MG/ML VIAL ONE (08:39)
[2020-06-02] MEDS: FUROSEMIDE 40 MG/4 ML VIAL IV SCH (08:43)
[2020-06-02] MEDS: LEVOTHYROXINE 100 MCG VIAL IV SCH (08:46)
[2020-06-02] MEDS: PANTOPRAZOLE 40 MG VIAL IV SCH ×2 (08:46→09:17)
[2020-06-02 17:55] LABS: ABG Base Excess 1.7 MMOL/L (-2.5-2.5); ABG HCO3 25.9 MMOL/L (20-26); ABG Oxygen Saturation 99.9 % (95-100); ABG PCO2 39.7 MM HG (35-48); ABG PH 7.426 (7.35-7.45); ABG TCO2 24.3 MMOL/L (23-27)
[2020-06-02 17:58] LABS: Hematocrit 24.6 VOL% (35.7-47.0)
[2020-06-02] MEDS: fentaNYL INJ 1,250 MCG in SODIUM CHLORIDE 0.9% 225 ML IV PRN (19:34)
[2020-06-03 04:02] LABS: ABG Base Excess 2.8 MMOL/L (-2.5-2.5); ABG HCO3 26.9 MMOL/L (20-26); ABG PCO2 31.8 MM HG (35-48); ABG PH 7.514 (7.35-7.45); ABG TCO2 23.9 MMOL/L (23-27); Allen Test Positive; Pt O2 Delivery Device Ventilator
[2020-06-03 04:13] LABS: Basophils % 0.2 % (0.0-0.8); Hematocrit 22.8 VOL% (35.7-47.0); Hemoglobin 7.2 GM/DL (12.0-16.0); Immature Granulocytes % 0.2 %; Immature Granulocytes Absolute 0.02 #; Lymphocytes # 0.4 10*3/uL (1.4-4.0); Lymphocytes % 4.1 % (21.3-54.2); Mean Corpuscular HGB Conc 31.6 GM/DL (32-36); Mean Corpuscular Volume 91.2 FL (87-102); Mean Platelet Volume 11.2 FL (9.6-12.0); Monocytes % 6.1 % (1.7-12.7); Neutrophils % 89.4 % (38.7-73.9); Platelet Count 209 T/CUMM (130-400); Red Cell Distribution Width 16.3 % (9.3-17.3); White Blood Count 10.5 T/CUMM (4-12)
[2020-06-03 04:26] LABS: INR 1.1; PT Patient Result 11.5 SECS (9.8-11.9); Partial Thromboplastin Time 23.9 SECS (23.9-33.8)
[2020-06-03 04:28] LABS: Albumin 2.2 G/DL (3.4-5.0); Bilirubin,Total 0.9 MG/DL (0.2-1.0); Calcium 8.1 MG/DL (8.5-10.1); Total Protein 6.1 G/DL (6.4-8.3)
[2020-06-03 04:29] LABS: Albumin 2.2 G/DL (3.4-5.0); Bilirubin,Direct 0.47 MG/DL (0.0-0.20); Bilirubin,Indirect 0.3 MG/DL (0.0-1.0); Bilirubin,Total 0.8 MG/DL (0.2-1.0); Total Protein 5.7 G/DL (6.4-8.3)
[2020-06-03] MEDS: OCTREOTIDE 500 MCG in SODIUM CHLORIDE 0.9% 100 ML IV SCH ×4 (05:01→20:35)
[2020-06-03] MEDS: METOCLOPRAMIDE 10 MG/2 ML VIAL IV SCH ×3 (05:38→18:06)
[2020-06-03] MEDS: PIPERACILLIN/TAZOBACTAM 3,375 MG in SODIUM CHLORIDE 0.9% 100 ML IV SCH ×3 (05:39→22:21)
[2020-06-03] MEDS: methylPREDNISolone SOD SUC 40 MG/1 ML VIAL IV SCH ×3 (05:41→22:18)
[2020-06-03] MEDS: fentaNYL INJ 1,250 MCG in SODIUM CHLORIDE 0.9% 225 ML IV PRN ×2 (05:50→12:37)
[2020-06-03 07:17] LABS: Band Neutrophils 4 % (0-10); Hypochromasia 2+; Lymphocytes 2 % (20-55); Nucleated Red Blood Cells 1 (0-5); Platelet Estimate Normal; Segmented Neutrophils 90 % (50-85); Total Cells Counted 100
[2020-06-03] MEDS: RIFAXIMIN 550 MG TABLET PO SCH ×2 (08:03→21:35)
[2020-06-03] MEDS: FERROUS SULFATE 325 MG TABLET PO SCH ×2 (08:03→21:35)
[2020-06-03] MEDS: POTASSIUM CHLORIDE 20 MEQ/15 ML UDCUP PO SCH (08:03)
[2020-06-03] MEDS: VENLAFAXINE 75 MG TABLET PER TUBE SCH ×2 (08:03→21:35)
[2020-06-03] MEDS: PANTOPRAZOLE 40 MG VIAL IV SCH (08:16)
[2020-06-03] MEDS: FUROSEMIDE 40 MG/4 ML VIAL IV SCH (08:16)
[2020-06-03] MEDS: LEVOTHYROXINE 100 MCG VIAL IV SCH (08:17)
[2020-06-03] MEDS: POTASSIUM CHLORIDE RIDER 20 MEQ in PREMIX 1 EACH IV SCH ×2 (08:28→10:08)
[2020-06-03] MEDS ORDERED: CALCIUM GLUCONATE 1,000 MG in SODIUM CHLORIDE 0.9% 100 ML IV ONE (08:30)
[2020-06-03 14:09] LABS: Hematocrit 30.4 VOL% (35.7-47.0)
[2020-06-03 19:38] LABS: Hematocrit 31.7 VOL% (35.7-47.0); Hemoglobin 10.1 GM/DL (12.0-16.0)
[2020-06-03] MEDS ORDERED: DEXTROSE 50% 25 GM/50 ML VIAL IV ONE (23:21)
[2020-06-04] MEDS: METOCLOPRAMIDE 10 MG/2 ML VIAL IV SCH ×4 (00:20→18:08)
[2020-06-04] MEDS: PHENYLEPHRINE DRIP 40 MG/250 ML PREMIX IV PRN (02:30)
[2020-06-04] MEDS: OCTREOTIDE 500 MCG in SODIUM CHLORIDE 0.9% 100 ML IV SCH ×4 (02:51→16:00)
[2020-06-04 04:27] LABS: Hemoglobin 9.7 GM/DL (12.0-16.0)
[2020-06-04 05:02] LABS: ABG Base Excess 2.1 MMOL/L (-2.5-2.5); ABG HCO3 26.1 MMOL/L (20-26); ABG Oxygen Saturation 88.6 % (95-100); ABG PCO2 54.8 MM HG (35-48); ABG PH 7.332 (7.35-7.45); ABG PO2 61.2 MM HG (80-95); ABG TCO2 26.6 MMOL/L (23-27); Allen Test Positive; Pt O2 Delivery Device Ventilator
[2020-06-04] MEDS: methylPREDNISolone SOD SUC 40 MG/1 ML VIAL IV SCH ×3 (05:47→22:18)
[2020-06-04] MEDS: PIPERACILLIN/TAZOBACTAM 3,375 MG in SODIUM CHLORIDE 0.9% 100 ML IV SCH ×4 (05:50→22:20)
[2020-06-04] MEDS: LEVOTHYROXINE 100 MCG VIAL IV SCH (08:26)
[2020-06-04] MEDS: FUROSEMIDE 40 MG/4 ML VIAL IV SCH (08:26)
[2020-06-04] MEDS: PANTOPRAZOLE 40 MG VIAL IV SCH (08:27)
[2020-06-04] MEDS: FERROUS SULFATE 325 MG TABLET PO SCH ×2 (08:29→22:05)
[2020-06-04] MEDS: VENLAFAXINE 75 MG TABLET PER TUBE SCH ×2 (08:29→22:05)
[2020-06-04] MEDS: RIFAXIMIN 550 MG TABLET PO SCH ×2 (08:29→22:05)
[2020-06-04 08:42] LABS: Albumin 2.3 G/DL (3.4-5.0); Bilirubin,Total 0.9 MG/DL (0.2-1.0); Calcium 8.4 MG/DL (8.5-10.1); Osmolality,Calculated 306.4 MOS/KG (273-304); Total Protein 6.7 G/DL (6.4-8.3)
[2020-06-04 08:46] LABS: PT Patient Result 11.1 SECS (9.8-11.9)
[2020-06-04] MEDS: fentaNYL INJ 1,250 MCG in SODIUM CHLORIDE 0.9% 225 ML IV PRN ×2 (09:09→14:10)
[2020-06-04] MEDS ORDERED: LORazepam 2 MG/1 ML VIAL ONE (09:44)
[2020-06-04] MEDS ORDERED: LORazepam 2 MG/1 ML VIAL IV ONE (09:46)
[2020-06-04] MEDS: ALBUTEROL/IPRATROPIUM 3 ML NEB RESP TX SCH ×2 (12:41→19:30)
[2020-06-04] MEDS: ALBUMIN 25% 12.5 GM in PREMIX 1 EACH IV SCH (12:50)
[2020-06-04] MEDS: fentaNYL INJ 2,500 MCG in SODIUM CHLORIDE 0.9% 500 ML IV PRN (18:06)
[2020-06-05] MEDS: OCTREOTIDE 500 MCG in SODIUM CHLORIDE 0.9% 100 ML IV SCH ×2 (00:11→02:22)
[2020-06-05] MEDS: ALBUMIN 25% 12.5 GM in PREMIX 1 EACH IV SCH ×2 (00:12→11:30)
[2020-06-05] MEDS: METOCLOPRAMIDE 10 MG/2 ML VIAL IV SCH ×2 (00:21→05:59)
[2020-06-05] MEDS: ALBUTEROL/IPRATROPIUM 3 ML NEB RESP TX SCH ×4 (00:55→19:08)
[2020-06-05] MEDS: fentaNYL INJ 2,500 MCG in SODIUM CHLORIDE 0.9% 500 ML IV PRN ×3 (01:57→23:46)
[2020-06-05 03:56] LABS: Basophils % 0.1 % (0.0-0.8); Hematocrit 31.2 VOL% (35.7-47.0); Hemoglobin 9.9 GM/DL (12.0-16.0); Immature Granulocytes % 0.7 %; Immature Granulocytes Absolute 0.06 #; Lymphocytes # 0.5 10*3/uL (1.4-4.0); Lymphocytes % 4.9 % (21.3-54.2); Mean Corpuscular HGB Conc 31.7 GM/DL (32-36); Monocytes % 5.6 % (1.7-12.7); Neutrophils % 88.7 % (38.7-73.9); Platelet Count 197 T/CUMM (130-400); Red Blood Count 3.43 MC/CUMM (3.8-5.5); Red Cell Distribution Width 18.5 % (9.3-17.3); White Blood Count 9.2 T/CUMM (4-12)
[2020-06-05 04:20] LABS: Albumin 2.6 G/DL (3.4-5.0); Bilirubin,Total 1.2 MG/DL (0.2-1.0); Calcium 8.5 MG/DL (8.5-10.1); Osmolality,Calculated 309.1 MOS/KG (273-304); Total Protein 6.7 G/DL (6.4-8.3)
[2020-06-05 04:54] LABS: ABG Base Excess 3.5 MMOL/L (-2.5-2.5); ABG HCO3 27.1 MMOL/L (20-26); ABG Oxygen Saturation 76.9 % (95-100); ABG PCO2 41.7 MM HG (35-48); ABG PH 7.436 (7.35-7.45); ABG PO2 44.3 MM HG (80-95); ABG TCO2 24.8 MMOL/L (23-27); Allen Test Positive; Pt O2 Delivery Device Ventilator
[2020-06-05 05:43] LABS: ABG Base Excess 4.1 MMOL/L (-2.5-2.5); ABG HCO3 28.1 MMOL/L (20-26); ABG Oxygen Saturation 98.1 % (95-100); ABG PCO2 39.8 MM HG (35-48); ABG PH 7.458 (7.35-7.45); ABG PO2 99.5 MM HG (80-95); ABG TCO2 25.6 MMOL/L (23-27); Allen Test Positive; Pt O2 Delivery Device Ventilator
[2020-06-05] MEDS: methylPREDNISolone SOD SUC 40 MG/1 ML VIAL IV SCH ×2 (05:56→17:47)
[2020-06-05] MEDS: PIPERACILLIN/TAZOBACTAM 3,375 MG in SODIUM CHLORIDE 0.9% 100 ML IV SCH ×3 (06:01→22:36)
[2020-06-05 07:15] LABS: Band Neutrophils 3 % (0-10); Lymphocytes 8 % (20-55); Platelet Estimate Normal; Segmented Neutrophils 85 % (50-85); Smudge Cells Few; Total Cells Counted 100
[2020-06-05 07:16] LABS: Anisocytosis 2+; Burr Cells Few
[2020-06-05] MEDS: VENLAFAXINE 75 MG TABLET PER TUBE SCH ×2 (08:35→22:19)
[2020-06-05] MEDS: FERROUS SULFATE 325 MG TABLET PO SCH ×2 (08:35→22:19)
[2020-06-05] MEDS: RIFAXIMIN 550 MG TABLET PO SCH ×2 (08:36→22:20)
[2020-06-05] MEDS: LEVOTHYROXINE 100 MCG VIAL IV SCH (08:43)
[2020-06-05] MEDS: PANTOPRAZOLE 40 MG VIAL IV SCH (08:44)
[2020-06-05] MEDS: FUROSEMIDE 40 MG/4 ML VIAL IV SCH (08:44)
[2020-06-05] MEDS: MIDAZOLAM 100 MG in SODIUM CHLORIDE 0.9% 80 ML IV PRN (10:00)
[2020-06-05] MEDS: DEXMEDETOMIDINE 200 MCG in SODIUM CHLORIDE 0.9% 48 ML IV PRN ×3 (12:31→19:21)
[2020-06-05] MEDS: DEXMEDETOMIDINE 400 MCG in SODIUM CHLORIDE 0.9% 96 ML IV PRN (22:08)
[2020-06-06] MEDS: ALBUTEROL/IPRATROPIUM 3 ML NEB RESP TX SCH ×4 (00:34→19:39)
[2020-06-06] MEDS: ALBUMIN 25% 12.5 GM in PREMIX 1 EACH IV SCH ×2 (00:43→13:00)
[2020-06-06] MEDS: DEXMEDETOMIDINE 400 MCG in SODIUM CHLORIDE 0.9% 96 ML IV PRN (03:51)
[2020-06-06 04:00] LABS: Basophils % 0.2 % (0.0-0.8); Eosinophils % 0.3 % (0.00-10.9); Hematocrit 32.9 VOL% (35.7-47.0); Hemoglobin 9.9 GM/DL (12.0-16.0); Immature Granulocytes % 0.5 %; Immature Granulocytes Absolute 0.03 #; Lymphocytes # 0.6 10*3/uL (1.4-4.0); Lymphocytes % 10.6 % (21.3-54.2); Mean Corpuscular HGB Conc 30.1 GM/DL (32-36); Mean Corpuscular Volume 94.5 FL (87-102); Mean Platelet Volume 9.7 FL (9.6-12.0); Monocytes % 8.8 % (1.7-12.7); Neutrophils % 79.6 % (38.7-73.9); Platelet Count 207 T/CUMM (130-400); Red Blood Count 3.48 MC/CUMM (3.8-5.5); Red Cell Distribution Width 18.5 % (9.3-17.3); White Blood Count 5.9 T/CUMM (4-12)
[2020-06-06 04:17] LABS: Albumin 2.5 G/DL (3.4-5.0); Calcium 8.2 MG/DL (8.5-10.1); Osmolality,Calculated 308.9 MOS/KG (273-304); Total Protein 6.5 G/DL (6.4-8.3)
[2020-06-06 04:20] LABS: ABG Base Excess 3.5 MMOL/L (-2.5-2.5); ABG HCO3 27.5 MMOL/L (20-26); ABG Oxygen Saturation 97.5 % (95-100); ABG PCO2 35.3 MM HG (35-48); ABG PH 7.488 (7.35-7.45); ABG PO2 91.1 MM HG (80-95); ABG TCO2 24.2 MMOL/L (23-27); Allen Test Positive; Pt O2 Delivery Device Ventilator
[2020-06-06] MEDS: fentaNYL INJ 2,500 MCG in SODIUM CHLORIDE 0.9% 500 ML IV PRN (06:29)
[2020-06-06] MEDS: MIDAZOLAM 100 MG in SODIUM CHLORIDE 0.9% 80 ML IV PRN (06:34)
[2020-06-06] MEDS: methylPREDNISolone SOD SUC 40 MG/1 ML VIAL IV SCH ×2 (06:41→10:33)
[2020-06-06] MEDS: POTASSIUM CHLORIDE RIDER 10 MEQ in PREMIX 1 EACH IV SCH ×4 (06:42→10:31)
[2020-06-06] MEDS: PIPERACILLIN/TAZOBACTAM 3,375 MG in SODIUM CHLORIDE 0.9% 100 ML IV SCH ×3 (06:42→23:55)
[2020-06-06] MEDS ORDERED: DEXMEDETOMIDINE 400 MCG in DEXTROSE 5% 96 ML IV PRN (08:30)
[2020-06-06] MEDS ORDERED: fentaNYL INJ 2,500 MCG in DEXTROSE 5% 75 ML IV PRN (08:30)
[2020-06-06] MEDS: RIFAXIMIN 550 MG TABLET PO SCH ×2 (09:51→23:05)
[2020-06-06] MEDS: VENLAFAXINE 75 MG TABLET PER TUBE SCH ×2 (09:51→23:05)
[2020-06-06] MEDS: FERROUS SULFATE 325 MG TABLET PO SCH ×2 (09:51→23:05)
[2020-06-06] MEDS: PANTOPRAZOLE 40 MG VIAL IV SCH (10:30)
[2020-06-06] MEDS: LEVOTHYROXINE 100 MCG VIAL IV SCH (10:32)
[2020-06-06] MEDS: FUROSEMIDE 40 MG/4 ML VIAL IV SCH (10:35)
[2020-06-07] MEDS ORDERED: HALOPERIDOL 5 MG/ML AMP IM ONE (01:53)
[2020-06-07] MEDS: ALBUTEROL/IPRATROPIUM 3 ML NEB RESP TX SCH ×4 (03:18→19:34)
[2020-06-07] MEDS: ALBUMIN 25% 12.5 GM in PREMIX 1 EACH IV SCH ×2 (03:29→12:25)
[2020-06-07] MEDS ORDERED: LORazepam 2 MG/1 ML VIAL IV ONE (04:09)
[2020-06-07 04:27] LABS: ABG Base Excess 1.9 MMOL/L (-2.5-2.5); ABG Oxygen Saturation 98.2 % (95-100); ABG PCO2 43.9 MM HG (35-48); ABG PH 7.406 (7.35-7.45); ABG PO2 122.5 MM HG (80-95); ABG TCO2 28.3 MMOL/L (23-27); Allen Test Positive; Pt O2 Delivery Device Venturi Mask
[2020-06-07 04:33] LABS: Basophils % 0.3 % (0.0-0.8); Eosinophils # 0.1 10*3/uL (0.0-0.87); Eosinophils % 0.9 % (0.00-10.9); Hematocrit 36.9 VOL% (35.7-47.0); Hemoglobin 11.1 GM/DL (12.0-16.0); Immature Granulocytes % 0.6 %; Immature Granulocytes Absolute 0.06 #; Lymphocytes # 0.6 10*3/uL (1.4-4.0); Lymphocytes % 6.2 % (21.3-54.2); Mean Corpuscular HGB Conc 30.1 GM/DL (32-36); Mean Corpuscular Volume 96.3 FL (87-102); Mean Platelet Volume 10.3 FL (9.6-12.0); Monocytes % 8.4 % (1.7-12.7); Neutrophils % 83.6 % (38.7-73.9); Platelet Count 204 T/CUMM (130-400); Red Blood Count 3.83 MC/CUMM (3.8-5.5); Red Cell Distribution Width 18.5 % (9.3-17.3); White Blood Count 9.7 T/CUMM (4-12)
[2020-06-07 04:34] LABS: Albumin 2.8 G/DL (3.4-5.0); Bilirubin,Total 1.2 MG/DL (0.2-1.0); Calcium 8.6 MG/DL (8.5-10.1); Osmolality,Calculated 313.4 MOS/KG (273-304); Total Protein 7.2 G/DL (6.4-8.3)
[2020-06-07] MEDS: PIPERACILLIN/TAZOBACTAM 3,375 MG in SODIUM CHLORIDE 0.9% 100 ML IV SCH ×3 (07:21→23:32)
[2020-06-07] MEDS: methylPREDNISolone SOD SUC 40 MG/1 ML VIAL IV SCH (09:45)
[2020-06-07] MEDS: FUROSEMIDE 40 MG/4 ML VIAL IV SCH (09:46)
[2020-06-07] MEDS: PANTOPRAZOLE 40 MG VIAL IV SCH (09:49)
[2020-06-07] MEDS: VENLAFAXINE 75 MG TABLET PER TUBE SCH ×2 (10:27→22:14)
[2020-06-07] MEDS: FERROUS SULFATE 325 MG TABLET PO SCH ×2 (10:28→22:14)
[2020-06-07] MEDS: RIFAXIMIN 550 MG TABLET PO SCH ×2 (10:28→22:14)
[2020-06-07] MEDS: ZIPRASIDONE 20 MG/1 ML VIAL IM PRN (12:10)
[2020-06-07] MEDS: LEVOTHYROXINE 100 MCG VIAL IV SCH (12:21)
[2020-06-07] MEDS ORDERED: ZIPRASIDONE 20 MG/1 ML VIAL IM ONE (16:13)
[2020-06-08] MEDS: ALBUTEROL/IPRATROPIUM 3 ML NEB RESP TX SCH ×4 (00:57→19:20)
[2020-06-08 03:33] LABS: ABG Base Excess -1.2 MMOL/L (-2.5-2.5); ABG HCO3 23.4 MMOL/L (20-26); ABG Oxygen Saturation 97.8 % (95-100); ABG PCO2 41.8 MM HG (35-48); ABG PH 7.369 (7.35-7.45); ABG TCO2 21.6 MMOL/L (23-27); Allen Test Positive
[2020-06-08 04:44] LABS: Basophils % 0.4 % (0.0-0.8); Eosinophils # 0.1 10*3/uL (0.0-0.87); Eosinophils % 0.9 % (0.00-10.9); Hematocrit 38.8 VOL% (35.7-47.0); Immature Granulocytes % 0.9 %; Immature Granulocytes Absolute 0.09 #; Lymphocytes # 0.7 10*3/uL (1.4-4.0); Lymphocytes % 6.5 % (21.3-54.2); Mean Corpuscular HGB Conc 28.9 GM/DL (32-36); Mean Corpuscular Volume 98.7 FL (87-102); Mean Platelet Volume 10.4 FL (9.6-12.0); Monocytes % 9.9 % (1.7-12.7); Neutrophils % 81.4 % (38.7-73.9); Platelet Count 214 T/CUMM (130-400); Red Blood Count 3.93 MC/CUMM (3.8-5.5); Red Cell Distribution Width 18.2 % (9.3-17.3)
[2020-06-08 04:50] LABS: Albumin 2.8 G/DL (3.4-5.0); Bilirubin,Total 0.9 MG/DL (0.2-1.0); Calcium 8.8 MG/DL (8.5-10.1); Total Protein 7.3 G/DL (6.4-8.3)
[2020-06-08 05:25] LABS: Hemoglobin 11.2 GM/DL (12.0-16.0)
[2020-06-08 05:29] LABS: Hypochromasia 1+; Ovalocytes Slight; Platelet Estimate Adequate
[2020-06-08 05:30] LABS: Microcytosis Slight
[2020-06-08] MEDS: PIPERACILLIN/TAZOBACTAM 3,375 MG in SODIUM CHLORIDE 0.9% 100 ML IV SCH ×3 (06:35→21:01)
[2020-06-08] MEDS: PANTOPRAZOLE 40 MG VIAL IV SCH (09:00)
[2020-06-08] MEDS: DEXT 5% LACT RING KCL 20 MEQ 20 MEQ/1,000 ML BAG IV SCH ×2 (09:01→16:56)
[2020-06-08] MEDS: LEVOTHYROXINE 100 MCG VIAL IV SCH (09:01)
[2020-06-08] MEDS: methylPREDNISolone SOD SUC 40 MG/1 ML VIAL IV SCH (09:01)
[2020-06-08] MEDS: VENLAFAXINE 75 MG TABLET PER TUBE SCH ×2 (09:16→20:41)
[2020-06-08] MEDS: FUROSEMIDE 40 MG/4 ML VIAL IV SCH (09:26)
[2020-06-08] MEDS: FERROUS SULFATE 325 MG TABLET PO SCH ×2 (09:27→20:41)
[2020-06-08] MEDS: ZIPRASIDONE 20 MG/1 ML VIAL IM PRN (20:42)
[2020-06-09] MEDS: ALBUTEROL/IPRATROPIUM 3 ML NEB RESP TX SCH ×4 (00:29→19:19)
[2020-06-09 03:59] LABS: Calcium 8.9 MG/DL (8.5-10.1); Osmolality,Calculated 321.4 MOS/KG (273-304)
[2020-06-09] MEDS: DEXT 5% LACT RING KCL 20 MEQ 20 MEQ/1,000 ML BAG IV SCH (04:09)
[2020-06-09] MEDS ORDERED: ACETAMINOPHEN 500 MG TABLET PO PRN (06:47)
[2020-06-09] MEDS: DEXTROSE 5% NACL 0.22% 1,000 ML IV SCH ×3 (08:43→22:20)
[2020-06-09] MEDS: cefTRIAXone 1,000 MG in SYRINGE 1 EACH IV SCH (08:43)
[2020-06-09] MEDS: PANTOPRAZOLE 40 MG VIAL IV SCH (08:44)
[2020-06-09] MEDS: VENLAFAXINE 75 MG TABLET PER TUBE SCH ×2 (08:44→20:59)
[2020-06-09] MEDS: PROPRANOLOL 10 MG TABLET PO SCH ×2 (08:44→15:32)
[2020-06-09] MEDS: POTASSIUM CHLORIDE 20 MEQ/15 ML UDCUP PO SCH ×3 (08:44→20:59)
[2020-06-09] MEDS: LEVOTHYROXINE 100 MCG VIAL IV SCH (08:44)
[2020-06-09] MEDS: FERROUS SULFATE 325 MG TABLET PO SCH ×2 (08:49→20:59)
[2020-06-09] MEDS: ONDANSETRON 4 MG/2 ML VIAL IV PRN (23:25)
[2020-06-10] MEDS: ALBUTEROL/IPRATROPIUM 3 ML NEB RESP TX SCH ×4 (00:54→19:46)
[2020-06-10 06:25] LABS: Basophils % 0.6 % (0.0-0.8); Eosinophils # 0.7 10*3/uL (0.0-0.87); Eosinophils % 10.2 % (0.00-10.9); Hematocrit 34.6 VOL% (35.7-47.0); Hemoglobin 10.2 GM/DL (12.0-16.0); Immature Granulocytes % 0.5 %; Immature Granulocytes Absolute 0.03 #; Lymphocytes # 0.7 10*3/uL (1.4-4.0); Lymphocytes % 10.9 % (21.3-54.2); Mean Corpuscular HGB Conc 29.5 GM/DL (32-36); Mean Corpuscular Volume 97.2 FL (87-102); Mean Platelet Volume 11.4 FL (9.6-12.0); Monocytes % 7.6 % (1.7-12.7); Neutrophils % 70.2 % (38.7-73.9); Platelet Count 195 T/CUMM (130-400); Red Blood Count 3.56 MC/CUMM (3.8-5.5); Red Cell Distribution Width 17.4 % (9.3-17.3); White Blood Count 6.4 T/CUMM (4-12)
[2020-06-10] MEDS: DEXTROSE 5% NACL 0.22% 1,000 ML IV SCH ×2 (06:33→15:41)
[2020-06-10 07:59] LABS: Calcium 8.2 MG/DL (8.5-10.1); Osmolality,Calculated 293.8 MOS/KG (273-304)
[2020-06-10] MEDS: LEVOTHYROXINE 100 MCG VIAL IV SCH (09:25)
[2020-06-10] MEDS: PANTOPRAZOLE 40 MG VIAL IV SCH (09:25)
[2020-06-10] MEDS: FERROUS SULFATE 325 MG TABLET PO SCH ×2 (09:27→20:47)
[2020-06-10] MEDS: cefTRIAXone 1,000 MG in SYRINGE 1 EACH IV SCH (09:27)
[2020-06-10] MEDS: VENLAFAXINE 75 MG TABLET PER TUBE SCH ×2 (09:27→20:47)
[2020-06-10] MEDS: POTASSIUM CHLORIDE 20 MEQ/15 ML UDCUP PO SCH ×3 (09:27→20:46)
[2020-06-10] MEDS ORDERED: POTASSIUM CHLORIDE 20 MEQ/15 ML UDCUP PO PRN (15:14)
[2020-06-10] MEDS ORDERED: POTASSIUM CHLORIDE 10 MEQ TABLET PO ONE (15:38)
[2020-06-10] MEDS: POTASSIUM CHLORIDE 20 MEQ TABLET PO PRN ×2 (15:42→18:18)
[2020-06-10] MEDS: SPIRONOLACTONE 100 MG TABLET PO SCH ×4 (18:56→21:06)
[2020-06-10] MEDS: NON-FORMULARY MEDICATION (Ursodiol 1,000 MG) PO SCH ×5 (18:57→21:06)
[2020-06-10] MEDS: ZIPRASIDONE 20 MG/1 ML VIAL IM PRN (20:49)
[2020-06-11] MEDS: ALBUTEROL/IPRATROPIUM 3 ML NEB RESP TX SCH ×4 (01:19→20:21)
[2020-06-11 06:48] LABS: Basophils % 0.1 % (0.0-0.8); Hematocrit 27.5 VOL% (35.7-47.0); Hemoglobin 9.3 GM/DL (12.0-16.0); Immature Granulocytes % 0.7 %; Immature Granulocytes Absolute 0.17 #; Lymphocytes # 0.5 10*3/uL (1.4-4.0); Lymphocytes % 1.8 % (21.3-54.2); Mean Corpuscular HGB Conc 33.8 GM/DL (32-36); Mean Corpuscular Volume 102.6 FL (87-102); Mean Platelet Volume 10.4 FL (9.6-12.0); Monocytes % 3.4 % (1.7-12.7); NRBC # 0.03 10*3/uL; Platelet Count 313 T/CUMM (130-400); Red Blood Count 2.68 MC/CUMM (3.8-5.5); Red Cell Distribution Width 15.1 % (9.3-17.3)
[2020-06-11 07:11] LABS: Band Neutrophils 5 % (0-10); Hypochromasia 1+; Lymphocytes 1 % (20-55); Segmented Neutrophils 90 % (50-85); Total Cells Counted 100
[2020-06-11 07:12] LABS: Anisocytosis 1+; Macrocytosis 1+; Platelet Estimate Normal; Target Cells Slight
[2020-06-11] MEDS: LEVOTHYROXINE 100 MCG VIAL IV SCH (10:30)
[2020-06-11] MEDS: PANTOPRAZOLE 40 MG VIAL IV SCH (10:30)
[2020-06-11] MEDS: FERROUS SULFATE 325 MG TABLET PO SCH ×2 (10:31→21:18)
[2020-06-11] MEDS: cefTRIAXone 1,000 MG in SYRINGE 1 EACH IV SCH (10:31)
[2020-06-11] MEDS: VENLAFAXINE 75 MG TABLET PER TUBE SCH ×2 (10:32→21:18)
[2020-06-11] MEDS: POTASSIUM CHLORIDE 20 MEQ TABLET PO SCH ×3 (10:32→21:18)
[2020-06-11] MEDS: SPIRONOLACTONE 100 MG TABLET PO SCH (10:34)
[2020-06-11 11:02] LABS: Albumin 2.3 G/DL (3.4-5.0); Bilirubin,Total 0.6 MG/DL (0.2-1.0); Calcium 8.2 MG/DL (8.5-10.1); Osmolality,Calculated 292.6 MOS/KG (273-304); Total Protein 6.5 G/DL (6.4-8.3)
[2020-06-11] MEDS: POTASSIUM CHLORIDE 20 MEQ TABLET PO PRN ×2 (11:48→14:06)
[2020-06-11] MEDS: DEXTROSE 5% NACL 0.22% 1,000 ML IV SCH ×2 (15:10→18:06)
[2020-06-11] MEDS: ZIPRASIDONE 20 MG/1 ML VIAL IM PRN (16:19)
[2020-06-11] MEDS: ONDANSETRON 4 MG/2 ML VIAL IV PRN (21:26)
[2020-06-12] MEDS: ALBUTEROL/IPRATROPIUM 3 ML NEB RESP TX SCH ×4 (02:09→19:53)
[2020-06-12 06:22] LABS: Basophils % 0.8 % (0.0-0.8); Eosinophils # 0.3 10*3/uL (0.0-0.87); Eosinophils % 6.5 % (0.00-10.9); Hematocrit 36.6 VOL% (35.7-47.0); Immature Granulocytes Absolute 0.05 #; Lymphocytes # 0.6 10*3/uL (1.4-4.0); Lymphocytes % 11.7 % (21.3-54.2); Mean Corpuscular HGB Conc 30.1 GM/DL (32-36); Mean Corpuscular Volume 96.1 FL (87-102); Mean Platelet Volume 12.5 FL (9.6-12.0); Monocytes % 8.6 % (1.7-12.7); Neutrophils % 71.4 % (38.7-73.9); Red Cell Distribution Width 18.5 % (9.3-17.3)
[2020-06-12 07:50] LABS: Platelet Estimate Decreased
[2020-06-12 07:51] LABS: Platelet Count 143 T/CUMM (130-400); Red Blood Count 3.81 MC/CUMM (3.8-5.5); White Blood Count 4.8 T/CUMM (4-12)
[2020-06-12] MEDS: POTASSIUM CHLORIDE 20 MEQ TABLET PO SCH ×3 (09:36→20:01)
[2020-06-12] MEDS: VENLAFAXINE 75 MG TABLET PER TUBE SCH ×2 (09:36→20:01)
[2020-06-12] MEDS: FERROUS SULFATE 325 MG TABLET PO SCH ×2 (09:37→20:01)
[2020-06-12] MEDS: LEVOTHYROXINE 100 MCG VIAL IV SCH (09:37)
[2020-06-12] MEDS: cefTRIAXone 1,000 MG in SYRINGE 1 EACH IV SCH (09:38)
[2020-06-12] MEDS: PANTOPRAZOLE 40 MG VIAL IV SCH (09:38)
[2020-06-12] MEDS: DEXTROSE 5% NACL 0.22% 1,000 ML IV SCH ×2 (10:12→17:04)
[2020-06-12 11:55] LABS: Basophils # 0.1 10*3/uL (0.0-0.2); Basophils % 0.7 % (0.0-0.8); Eosinophils # 0.3 10*3/uL (0.0-0.87); Eosinophils % 4.9 % (0.00-10.9); Hematocrit 32.3 VOL% (35.7-47.0); Hemoglobin 9.9 GM/DL (12.0-16.0); Immature Granulocytes % 0.6 %; Immature Granulocytes Absolute 0.04 #; Lymphocytes # 0.6 10*3/uL (1.4-4.0); Lymphocytes % 8.6 % (21.3-54.2); Mean Corpuscular HGB Conc 30.7 GM/DL (32-36); Mean Corpuscular Volume 95.3 FL (87-102); Monocytes % 8.1 % (1.7-12.7); Neutrophils % 77.1 % (38.7-73.9); Platelet Count 202 T/CUMM (130-400); Red Blood Count 3.39 MC/CUMM (3.8-5.5); Red Cell Distribution Width 18.2 % (9.3-17.3); White Blood Count 6.9 T/CUMM (4-12)
[2020-06-12] MEDS ORDERED: LORazepam 2 MG/1 ML VIAL IV ONE (19:47)
[2020-06-13] MEDS: ALBUTEROL/IPRATROPIUM 3 ML NEB RESP TX SCH ×4 (01:23→19:11)
[2020-06-13] MEDS: ZIPRASIDONE 20 MG/1 ML VIAL IM PRN (02:05)
[2020-06-13] MEDS: DEXTROSE 5% NACL 0.22% 1,000 ML IV SCH ×3 (09:16→23:33)
[2020-06-13] MEDS: POTASSIUM CHLORIDE 20 MEQ TABLET PO SCH ×3 (09:35→20:33)
[2020-06-13] MEDS: VENLAFAXINE 75 MG TABLET PER TUBE SCH ×2 (09:35→20:33)
[2020-06-13] MEDS: FERROUS SULFATE 325 MG TABLET PO SCH ×2 (09:35→20:33)
[2020-06-13] MEDS: cefTRIAXone 1,000 MG in SYRINGE 1 EACH IV SCH (09:36)
[2020-06-13] MEDS: PANTOPRAZOLE 40 MG VIAL IV SCH (09:36)
[2020-06-13] MEDS: LEVOTHYROXINE 100 MCG VIAL IV SCH (09:37)
[2020-06-13 12:46] LABS: Basophils # 0.1 10*3/uL (0.0-0.2); Basophils % 0.7 % (0.0-0.8); Eosinophils # 0.3 10*3/uL (0.0-0.87); Eosinophils % 4.6 % (0.00-10.9); Hematocrit 36.9 VOL% (35.7-47.0); Hemoglobin 11.2 GM/DL (12.0-16.0); Immature Granulocytes % 0.4 %; Immature Granulocytes Absolute 0.03 #; Lymphocytes # 0.7 10*3/uL (1.4-4.0); Lymphocytes % 9.3 % (21.3-54.2); Mean Corpuscular HGB Conc 30.4 GM/DL (32-36); Mean Corpuscular Volume 96.6 FL (87-102); Mean Platelet Volume 12.4 FL (9.6-12.0); Monocytes % 8.5 % (1.7-12.7); Neutrophils % 76.5 % (38.7-73.9); Platelet Count 188 T/CUMM (130-400); Red Blood Count 3.82 MC/CUMM (3.8-5.5); Red Cell Distribution Width 19.3 % (9.3-17.3)
[2020-06-13 13:11] LABS: Calcium 8.6 MG/DL (8.5-10.1); Osmolality,Calculated 278.3 MOS/KG (273-304)
[2020-06-13] MEDS: diphenhydrAMINE CAP 25 MG CAPSULE PO PRN (21:29)
[2020-06-14] MEDS: ALBUTEROL/IPRATROPIUM 3 ML NEB RESP TX SCH ×3 (00:26→13:05)
[2020-06-14] MEDS: DEXTROSE 5% NACL 0.22% 1,000 ML IV SCH (05:12)
[2020-06-14] MEDS: PANTOPRAZOLE 40 MG VIAL IV SCH (09:16)
[2020-06-14] MEDS: cefTRIAXone 1,000 MG in SYRINGE 1 EACH IV SCH (09:16)
[2020-06-14] MEDS: LEVOTHYROXINE 100 MCG VIAL IV SCH (09:16)
[2020-06-14] MEDS: POTASSIUM CHLORIDE 20 MEQ TABLET PO SCH (09:17)
[2020-06-14] MEDS: VENLAFAXINE 75 MG TABLET PER TUBE SCH (09:17)
[2020-06-14] MEDS: FERROUS SULFATE 325 MG TABLET PO SCH (09:17)
[2020-06-14 11:32] VITALS: BP 107/66
== END 2020-06-14 14:07 | DRG 432 ==
LOC: N.ED 08:03 → N.EDINP 10:22 → SUATTDRO 10:22 → N.ICU 14:40 → N.2E 06-09 17:39 → N.4E 06-10 14:40
PROVIDERS: ADMIT Family Medicine; ATTEND Family Medicine

== ENCOUNTER 2022-06-09 17:07 | Inpatient (IN) ==
[2022-06-09] MEDS ORDERED: SODIUM CHLORIDE 0.9% 1,000 ML IV STA ×2 (17:39→20:04)
[2022-06-09] MEDS ORDERED: ONDANSETRON 4 MG/2 ML VIAL IV STA (17:39)
[2022-06-09 18:46] LABS: Albumin 2.7 G/DL (3.4-5.0); Basophils # 0.1 10*3/uL (0.0-0.2); Basophils % 0.5 % (0.0-0.8); Bilirubin,Total 2.6 MG/DL (0.20-1.00); Calcium 8.8 MG/DL (8.5-10.1); Eosinophils % 0.1 % (0.00-10.9); Hematocrit 31.4 VOL% (35.7-47.0); Hemoglobin 8.7 GM/DL (12.0-16.0); Immature Granulocytes % 0.9 %; Immature Granulocytes Absolute 0.22 #; Lymphocytes # 0.6 10*3/uL (1.4-4.0); Lymphocytes % 2.4 % (21.3-54.2); Mean Corpuscular HGB Conc 27.7 GM/DL (32-36); Mean Corpuscular Volume 70.4 FL (87-102); Mean Platelet Volume 11.1 FL (9.6-12.0); Monocytes # 1.4 10*3/uL (0.11-0.8); Monocytes % 5.7 % (1.7-12.7); NRBC # 0.43 10*3/uL; Neutrophils % 90.4 % (38.7-73.9); Osmolality,Calculated 265.2 MOS/KG (273-304); Platelet Count 589 T/CUMM (130-400); Potassium 4.8 MMOL/L (3.5-5.1); Red Blood Count 4.46 MC/CUMM (3.8-5.5); Red Cell Distribution Width 20.8 % (9.3-17.3); Total Protein 7.4 G/DL (6.4-8.2); White Blood Count 24.1 T/CUMM (4-12)
[2022-06-09 18:51] LABS: Anisocytosis 2+; Hypochromia 2+; Microcytosis 2+
[2022-06-09 18:52] LABS: Ovalocytes 1+; Platelet Estimate Increased; Poikilocytosis 1+; Target Cells 1+; Tear Drop Cells 1+
[2022-06-09 20:40] LABS: Hyaline Casts,Urine 20 /LPF (0-3); Mucus,Urine Occasional /LPF (Occasional); RBC,Urine 14 /HPF (0-4); Squamous Epithelial Cell,Urine Few /HPF (0-10)
[2022-06-09 20:41] LABS: Bilirubin,Urine Negative (Negative); Blood, Urine Trace mg/dL (Negative); Glucose,Urine (UA) Negative (Negative); Ketones,Urine Negative (Negative); Nitrite,Urine Negative (Negative); Protein,Urine >=300 mg/dL (Negative); Urine Appearance Clear (Clear); Urine Color Yellow (Yellow); Urine pH 5.5 (4.5-8.0)
[2022-06-09] MEDS ORDERED: DEXTROSE 10% 250 ML BAG IV PRN (20:53)
[2022-06-09] MEDS ORDERED: GLUCAGON 1 MG VIAL IM PRN (20:53)
[2022-06-09] MEDS ORDERED: ZALEPLON 5 MG CAPSULE PO PRN (20:53)
[2022-06-09] MEDS ORDERED: diphenhydrAMINE CAP 25 MG CAPSULE PO PRN (20:53)
[2022-06-09] MEDS ORDERED: hydrALAZINE 20 MG/1 ML VIAL IV PRN (20:53)
[2022-06-09] MEDS ORDERED: ACETAMINOPHEN 325 MG TABLET PO PRN (20:53)
[2022-06-09] MEDS ORDERED: guaiFENesin/DM ER 600-30 MG TABLET PO PRN (20:53)
[2022-06-09] MEDS ORDERED: NICOTINE 21 MG/24 HR PATCH TRANSDERM PRN (20:53)
[2022-06-10] MEDS ORDERED: cefTRIAXone 1,000 MG VIAL IM ONE (00:09)
[2022-06-10] MEDS ORDERED: AZITHROMYCIN 250 MG TABLET PO ONE (00:10)
[2022-06-10] MEDS: cefTRIAXone 1,000 MG in SODIUM CHLORIDE 0.9% 100 ML IV SCH ×2 (00:11→21:15)
[2022-06-10] MEDS: HEPARIN 5,000 UNIT/1 ML VIAL SUBCUT SCH ×3 (00:12→21:37)
[2022-06-10] MEDS: AZITHROMYCIN INJ 500 MG in SODIUM CHLORIDE 0.9% 250 ML IV SCH ×2 (00:12→22:00)
[2022-06-10] MEDS: ALBUTEROL/IPRATROPIUM 3 ML NEB RESP TX SCH ×4 (00:23→19:27)
[2022-06-10] MEDS: SODIUM CHLORIDE 0.9% 1,000 ML IV SCH ×3 (02:44→15:45)
[2022-06-10 06:48] LABS: Albumin 2.6 G/DL (3.4-5.0); Bilirubin,Total 2.3 MG/DL (0.20-1.00); Calcium 8.5 MG/DL (8.5-10.1); Osmolality,Calculated 266.4 MOS/KG (273-304); Risk Ratio 9.36; Total Protein 7.1 G/DL (6.4-8.2); VLDL Cholesterol 26.6 MG/DL
[2022-06-10 06:48] LABS: Folate 11.93 NG/ML (5.38-24.0); Vitamin B12 > 2000 PG/ML (211-911)
[2022-06-10 06:55] LABS: Basophils # 0.1 10*3/uL (0.0-0.2); Basophils % 0.5 % (0.0-0.8); Eosinophils % 0.1 % (0.00-10.9); Hematocrit 27.5 VOL% (35.7-47.0); Hemoglobin 7.8 GM/DL (12.0-16.0); Immature Granulocytes % 0.7 %; Immature Granulocytes Absolute 0.09 #; Lymphocytes # 0.5 10*3/uL (1.4-4.0); Lymphocytes % 3.9 % (21.3-54.2); Mean Corpuscular HGB Conc 28.4 GM/DL (32-36); Mean Corpuscular Volume 69.8 FL (87-102); Mean Platelet Volume 10.6 FL (9.6-12.0); Monocytes # 0.9 10*3/uL (0.11-0.8); Monocytes % 6.6 % (1.7-12.7); NRBC # 0.15 10*3/uL; Neutrophils % 88.2 % (38.7-73.9); Red Blood Count 3.94 MC/CUMM (3.8-5.5); Red Cell Distribution Width 19.9 % (9.3-17.3)
[2022-06-10 06:59] LABS: Platelet Count 383 T/CUMM (130-400); White Blood Count 12.8 T/CUMM (4-12)
[2022-06-10 07:01] LABS: Hypochromia 1+; Lymphocytes 2 % (20-55); Microcytosis 2+; Polychromasia Slight; Total Cells Counted 100
[2022-06-10 07:02] LABS: Ovalocytes Few; Target Cells Few
[2022-06-10 07:05] LABS: Sedimentation Rate-Westergren 63 MM/HR (0-20)
[2022-06-10] MEDS: PANTOPRAZOLE 40 MG TABLET PO SCH (09:38)
[2022-06-10] MEDS ORDERED: ALBUTEROL 2.5 MG/3 ML NEB RESP TX PRN (15:40)
[2022-06-10] MEDS: LACTULOSE 20 GM/30 ML UDCUP PO SCH ×3 (16:22→21:36)
[2022-06-10] MEDS: FERROUS SULFATE 325 MG TABLET PO SCH (21:36)
[2022-06-10] MEDS: hydrOXYzine HCL 10 MG TABLET PO SCH (21:36)
[2022-06-10] MEDS: RIFAXIMIN 550 MG TABLET PO SCH (21:37)
[2022-06-10] MEDS: ONDANSETRON 4 MG/2 ML VIAL IV PRN (22:48)
[2022-06-10] MEDS ORDERED: BISACODYL 10 MG SUPP RECTAL PRN (23:13)
[2022-06-11] MEDS: ALBUTEROL/IPRATROPIUM 3 ML NEB RESP TX SCH ×4 (00:14→19:10)
[2022-06-11] MEDS: SODIUM CHLORIDE 0.9% 1,000 ML IV SCH ×2 (04:20→18:24)
[2022-06-11 05:44] LABS: Albumin 2.5 G/DL (3.4-5.0); Bilirubin,Total 1.9 MG/DL (0.20-1.00); Calcium 8.6 MG/DL (8.5-10.1); Osmolality,Calculated 269.5 MOS/KG (273-304); Potassium 4.3 MMOL/L (3.5-5.1); Total Protein 7.4 G/DL (6.4-8.2)
[2022-06-11] MEDS: LEVOTHYROXINE 50 MCG TABLET PO SCH (05:55)
[2022-06-11 07:03] LABS: Basophils % 0.3 % (0.0-0.8); Hematocrit 32.2 VOL% (35.7-47.0); Immature Granulocytes % 0.8 %; Immature Granulocytes Absolute 0.09 #; Lymphocytes # 0.4 10*3/uL (1.4-4.0); Lymphocytes % 3.4 % (21.3-54.2); Mean Corpuscular HGB Conc 28.3 GM/DL (32-36); Mean Corpuscular Volume 69.5 FL (87-102); Mean Platelet Volume 10.9 FL (9.6-12.0); Monocytes # 1.2 10*3/uL (0.11-0.8); Monocytes % 11.2 % (1.7-12.7); NRBC # 0.63 10*3/uL; Neutrophils % 84.3 % (38.7-73.9); Platelet Count 361 T/CUMM (130-400); Red Blood Count 4.63 MC/CUMM (3.8-5.5); Red Cell Distribution Width 20.8 % (9.3-17.3); White Blood Count 10.9 T/CUMM (4-12)
[2022-06-11 07:08] LABS: Hemoglobin 9.1 GM/DL (12.0-16.0)
[2022-06-11 07:10] LABS: Lymphocytes 1 % (20-55); Nucleated Red Blood Cells 12 (0-5); Platelet Estimate Adequate; Total Cells Counted 100
[2022-06-11 07:11] LABS: Hypochromia Slight; Microcytosis Slight
[2022-06-11 08:05] LABS: INR 1.4; PT Patient Result 15.1 SECS (10.5-12.0)
[2022-06-11] MEDS: VENLAFAXINE XR 75 MG CAPSULE PO SCH (09:42)
[2022-06-11] MEDS: PANTOPRAZOLE 40 MG TABLET PO SCH (09:43)
[2022-06-11] MEDS: FERROUS SULFATE 325 MG TABLET PO SCH ×2 (09:43→20:25)
[2022-06-11] MEDS: LACTULOSE 20 GM/30 ML UDCUP PO SCH (09:43)
[2022-06-11] MEDS: predniSONE 20 MG TABLET PO SCH (09:43)
[2022-06-11] MEDS: RIFAXIMIN 550 MG TABLET PO SCH ×2 (09:43→20:25)
[2022-06-11] MEDS: HEPARIN 5,000 UNIT/1 ML VIAL SUBCUT SCH (09:44)
[2022-06-11] MEDS: SODIUM CHLORIDE 1 GM TABLET PO SCH ×2 (16:51→20:25)
[2022-06-11] MEDS: GABAPENTIN 300 MG CAPSULE PO SCH (20:25)
[2022-06-11] MEDS: hydrOXYzine HCL 10 MG TABLET PO SCH (20:25)
[2022-06-11] MEDS: cefTRIAXone 1,000 MG in SODIUM CHLORIDE 0.9% 100 ML IV SCH (20:25)
[2022-06-11] MEDS: AZITHROMYCIN INJ 500 MG in SODIUM CHLORIDE 0.9% 250 ML IV SCH (20:30)
[2022-06-12] MEDS: ALBUTEROL/IPRATROPIUM 3 ML NEB RESP TX SCH ×4 (00:54→19:39)
[2022-06-12] MEDS: LEVOTHYROXINE 50 MCG TABLET PO SCH (05:30)
[2022-06-12 06:41] LABS: Albumin 2.6 G/DL (3.4-5.0); Bilirubin,Total 1.8 MG/DL (0.20-1.00); Calcium 8.5 MG/DL (8.5-10.1); Osmolality,Calculated 267.6 MOS/KG (273-304); Potassium 4.4 MMOL/L (3.5-5.1)
[2022-06-12 07:36] LABS: Basophils % 0.1 % (0.0-0.8); Immature Granulocytes % 0.8 %; Lymphocytes # 0.3 10*3/uL (1.4-4.0); Lymphocytes % 2.5 % (21.3-54.2); Mean Corpuscular HGB Conc 28.9 GM/DL (32-36); Mean Corpuscular Volume 68.5 FL (87-102); Mean Platelet Volume 9.6 FL (9.6-12.0); Monocytes # 0.7 10*3/uL (0.11-0.8); Monocytes % 5.8 % (1.7-12.7); NRBC # 0.35 10*3/uL; Neutrophils % 90.8 % (38.7-73.9); Platelet Count 361 T/CUMM (130-400); Red Blood Count 3.94 MC/CUMM (3.8-5.5); Red Cell Distribution Width 20.6 % (9.3-17.3); White Blood Count 12.2 T/CUMM (4-12)
[2022-06-12 07:41] LABS: Hemoglobin 7.8 GM/DL (12.0-16.0)
[2022-06-12 07:43] LABS: Lymphocytes 1 % (20-55); Nucleated Red Blood Cells 1 (0-5); Platelet Estimate Adequate; Total Cells Counted 100
[2022-06-12 07:44] LABS: Hypochromia 1+; Microcytosis 1+
[2022-06-12] MEDS: predniSONE 20 MG TABLET PO SCH (10:24)
[2022-06-12] MEDS: FERROUS SULFATE 325 MG TABLET PO SCH ×2 (10:24→20:45)
[2022-06-12] MEDS: GABAPENTIN 300 MG CAPSULE PO SCH ×2 (10:24→20:43)
[2022-06-12] MEDS: VENLAFAXINE XR 75 MG CAPSULE PO SCH (10:24)
[2022-06-12] MEDS: SODIUM CHLORIDE 1 GM TABLET PO SCH ×2 (10:25→15:28)
[2022-06-12] MEDS: RIFAXIMIN 550 MG TABLET PO SCH ×2 (10:25→20:43)
[2022-06-12] MEDS: PANTOPRAZOLE 40 MG TABLET PO SCH (10:25)
[2022-06-12] MEDS: SODIUM CHLORIDE 0.9% 1,000 ML IV SCH (17:55)
[2022-06-12] MEDS: cefTRIAXone 1,000 MG in SODIUM CHLORIDE 0.9% 100 ML IV SCH (20:39)
[2022-06-12] MEDS: hydrOXYzine HCL 10 MG TABLET PO SCH (20:43)
[2022-06-12] MEDS: AZITHROMYCIN INJ 500 MG in SODIUM CHLORIDE 0.9% 250 ML IV SCH (21:20)
[2022-06-13] MEDS: ALBUTEROL/IPRATROPIUM 3 ML NEB RESP TX SCH ×5 (00:46→19:23)
[2022-06-13 03:28] LABS: Albumin 2.6 G/DL (3.4-5.0); Bilirubin,Total 1.7 MG/DL (0.20-1.00); Calcium 8.6 MG/DL (8.5-10.1); Osmolality,Calculated 276.2 MOS/KG (273-304); Potassium 4.6 MMOL/L (3.5-5.1)
[2022-06-13 03:37] LABS: Basophils % 0.1 % (0.0-0.8); Hematocrit 28.4 VOL% (35.7-47.0); Immature Granulocytes % 1.3 %; Immature Granulocytes Absolute 0.22 #; Lymphocytes # 0.5 10*3/uL (1.4-4.0); Lymphocytes % 2.9 % (21.3-54.2); Mean Corpuscular HGB Conc 27.5 GM/DL (32-36); Mean Corpuscular Volume 71.9 FL (87-102); Mean Platelet Volume 9.9 FL (9.6-12.0); Monocytes # 1.2 10*3/uL (0.11-0.8); NRBC # 1.06 10*3/uL; Neutrophils % 88.7 % (38.7-73.9); Platelet Count 435 T/CUMM (130-400); Red Blood Count 3.95 MC/CUMM (3.8-5.5); Red Cell Distribution Width 21.1 % (9.3-17.3); White Blood Count 17.5 T/CUMM (4-12)
[2022-06-13 03:39] LABS: Hemoglobin 7.8 GM/DL (12.0-16.0)
[2022-06-13 03:45] LABS: Hypochromia 1+; Lymphocytes 2 % (20-55); Microcytosis Slight; Nucleated Red Blood Cells 6 (0-5); Platelet Estimate Adequate; Total Cells Counted 100
[2022-06-13] MEDS: LEVOTHYROXINE 50 MCG TABLET PO SCH (05:30)
[2022-06-13] MEDS: LACTATED RINGERS 1,000 ML IV SCH (08:00)
[2022-06-13] MEDS ORDERED: LIDOCAINE 2% 5 ML VIAL ONE (08:55)
[2022-06-13] MEDS ORDERED: ETOMIDATE 20 MG/10 ML VIAL IV ONE (08:55)
[2022-06-13] MEDS ORDERED: propofoL 200 MG/20 ML VIAL IV ONE (08:55)
[2022-06-13] MEDS: ONDANSETRON 4 MG/2 ML VIAL IV PRN (10:09)
[2022-06-13] MEDS: FERROUS SULFATE 325 MG TABLET PO SCH ×2 (13:44→21:32)
[2022-06-13] MEDS: VENLAFAXINE XR 75 MG CAPSULE PO SCH (13:44)
[2022-06-13] MEDS: GABAPENTIN 300 MG CAPSULE PO SCH ×2 (13:44→21:32)
[2022-06-13] MEDS: predniSONE 20 MG TABLET PO SCH (13:44)
[2022-06-13] MEDS: PANTOPRAZOLE 40 MG TABLET PO SCH (13:44)
[2022-06-13] MEDS: RIFAXIMIN 550 MG TABLET PO SCH ×2 (13:45→21:32)
[2022-06-13 14:51] LABS: Neutrophils,Peritoneal Fluid 51 %
[2022-06-13 14:52] LABS: RBC,Peritoneal Fluid 121 T/CUMM
[2022-06-13] MEDS: SODIUM CHLORIDE 0.9% 1,000 ML IV SCH ×2 (18:06)
[2022-06-13] MEDS: MUPIROCIN 2% OINT 22 GM TUBE TOP SCH (18:06)
[2022-06-13 18:11] LABS: Bilirubin,Urine Negative (Negative); Blood, Urine Trace mg/dL (Negative); Glucose,Urine (UA) Negative (Negative); Ketones,Urine Negative (Negative); Nitrite,Urine Negative (Negative); Protein,Urine 30 mg/dL (Negative); Urine Appearance Clear (Clear); Urine Color Yellow (Yellow); Urine Urobilinogen 0.2 eU/dL (<2.0); Urine pH 5.5 (4.5-8.0)
[2022-06-13 18:15] LABS: Bacteria,Urine Occasional /HPF (Few); Hyaline Casts,Urine 22 /LPF (0-3); Mucus,Urine Occasional /LPF (Occasional); RBC,Urine 6 /HPF (0-4); Squamous Epithelial Cell,Urine Occasional /HPF (0-10)
[2022-06-13] MEDS: cefTRIAXone 1,000 MG in SODIUM CHLORIDE 0.9% 100 ML IV SCH (21:28)
[2022-06-13] MEDS: hydrOXYzine HCL 10 MG TABLET PO SCH (21:32)
[2022-06-13] MEDS: AZITHROMYCIN INJ 500 MG in SODIUM CHLORIDE 0.9% 250 ML IV SCH (22:04)
[2022-06-14] MEDS: ALBUTEROL/IPRATROPIUM 3 ML NEB RESP TX SCH ×4 (01:00→19:35)
[2022-06-14] MEDS: LEVOTHYROXINE 50 MCG TABLET PO SCH (05:39)
[2022-06-14 06:28] LABS: Albumin 2.4 G/DL (3.4-5.0); Bilirubin,Total 1.8 MG/DL (0.20-1.00); Osmolality,Calculated 282.8 MOS/KG (273-304); Potassium 4.3 MMOL/L (3.5-5.1); Total Protein 6.4 G/DL (6.4-8.2)
[2022-06-14 06:34] LABS: Basophils % 0.1 % (0.0-0.8); Eosinophils % 0.2 % (0.00-10.9); Hematocrit 27.8 VOL% (35.7-47.0); Hemoglobin 7.7 GM/DL (12.0-16.0); Immature Granulocytes % 1.6 %; Immature Granulocytes Absolute 0.18 #; Lymphocytes # 0.4 10*3/uL (1.4-4.0); Lymphocytes % 3.1 % (21.3-54.2); Mean Corpuscular HGB Conc 27.7 GM/DL (32-36); Mean Corpuscular Volume 71.3 FL (87-102); Mean Platelet Volume 9.6 FL (9.6-12.0); Monocytes # 0.7 10*3/uL (0.11-0.8); Monocytes % 6.4 % (1.7-12.7); Neutrophils % 88.6 % (38.7-73.9); Platelet Count 303 T/CUMM (130-400); Red Cell Distribution Width 21.4 % (9.3-17.3); White Blood Count 11.2 T/CUMM (4-12)
[2022-06-14 06:37] LABS: Band Neutrophils 1 % (0-10); Hypochromia 1+; Lymphocytes 1 % (20-55); Microcytosis 1+; Nucleated Red Blood Cells 1 (0-5); Platelet Estimate Adequate; Total Cells Counted 100
[2022-06-14] MEDS: FERROUS SULFATE 325 MG TABLET PO SCH ×2 (09:00→21:28)
[2022-06-14] MEDS: RIFAXIMIN 550 MG TABLET PO SCH ×2 (09:00→21:28)
[2022-06-14] MEDS: predniSONE 20 MG TABLET PO SCH (09:00)
[2022-06-14] MEDS: MUPIROCIN 2% OINT 22 GM TUBE TOP SCH (09:01)
[2022-06-14] MEDS: HEPARIN 5,000 UNIT/1 ML VIAL SUBCUT SCH ×2 (09:01→21:29)
[2022-06-14] MEDS: PANTOPRAZOLE 40 MG TABLET PO SCH (09:01)
[2022-06-14] MEDS: GABAPENTIN 300 MG CAPSULE PO SCH ×2 (09:01→21:28)
[2022-06-14] MEDS: VENLAFAXINE XR 75 MG CAPSULE PO SCH (09:56)
[2022-06-14] MEDS: LACTATED RINGERS 1,000 ML IV SCH (10:19)
[2022-06-14] MEDS: SODIUM CHLORIDE 0.9% 1,000 ML IV SCH ×2 (10:19→12:22)
[2022-06-14] MEDS ORDERED: DULoxetine 30 MG CAPSULE PO SCH (10:38)
[2022-06-14] MEDS ORDERED: HYDROXYCHLOROQUINE 200 MG TABLET PO SCH (11:00)
[2022-06-14] MEDS: METOCLOPRAMIDE 10 MG/2 ML VIAL IV SCH ×3 (12:30→23:22)
[2022-06-14] MEDS: hydrOXYzine HCL 10 MG TABLET PO SCH (21:28)
[2022-06-14] MEDS: cefTRIAXone 1,000 MG in SODIUM CHLORIDE 0.9% 100 ML IV SCH (21:28)
[2022-06-14] MEDS: BUDESONIDE/FORMOTEROL 160-4.5 INHALER 6 GM INH SCH (21:29)
[2022-06-15] MEDS: ALBUTEROL/IPRATROPIUM 3 ML NEB RESP TX SCH ×4 (00:48→21:06)
[2022-06-15 04:14] LABS: Albumin 2.4 G/DL (3.4-5.0); Bilirubin,Total 1.7 MG/DL (0.20-1.00); Calcium 9.1 MG/DL (8.5-10.1); Osmolality,Calculated 285.7 MOS/KG (273-304); Potassium 4.8 MMOL/L (3.5-5.1); Total Protein 6.8 G/DL (6.4-8.2)
[2022-06-15 04:19] LABS: Basophils % 0.1 % (0.0-0.8); Hemoglobin 7.8 GM/DL (12.0-16.0); Immature Granulocytes % 1.1 %; Immature Granulocytes Absolute 0.11 #; Lymphocytes # 0.3 10*3/uL (1.4-4.0); Lymphocytes % 3.3 % (21.3-54.2); Mean Corpuscular HGB Conc 27.9 GM/DL (32-36); Mean Corpuscular Volume 70.5 FL (87-102); Mean Platelet Volume 10.3 FL (9.6-12.0); Monocytes # 0.6 10*3/uL (0.11-0.8); Monocytes % 5.5 % (1.7-12.7); NRBC # 0.71 10*3/uL; Platelet Count 267 T/CUMM (130-400); Red Blood Count 3.97 MC/CUMM (3.8-5.5); Red Cell Distribution Width 21.6 % (9.3-17.3); White Blood Count 9.9 T/CUMM (4-12)
[2022-06-15 04:24] LABS: Hypochromia 1+; Lymphocytes 5 % (20-55); Microcytosis 1+; Nucleated Red Blood Cells 6 (0-5); Platelet Estimate Adequate; Total Cells Counted 100
[2022-06-15] MEDS: METOCLOPRAMIDE 10 MG/2 ML VIAL IV SCH (05:49)
[2022-06-15] MEDS: LEVOTHYROXINE 50 MCG TABLET PO SCH (05:49)
[2022-06-15] MEDS ORDERED: DULoxetine 30 MG CAPSULE PO SCH (09:00)
[2022-06-15] MEDS: RIFAXIMIN 550 MG TABLET PO SCH ×2 (10:36→20:51)
[2022-06-15] MEDS: predniSONE 20 MG TABLET PO SCH (10:36)
[2022-06-15] MEDS: GABAPENTIN 300 MG CAPSULE PO SCH ×2 (10:36→20:51)
[2022-06-15] MEDS: ASCORBIC ACID 500 MG TABLET PO SCH (10:36)
[2022-06-15] MEDS: FERROUS SULFATE 325 MG TABLET PO SCH ×2 (10:37→20:51)
[2022-06-15] MEDS: PANTOPRAZOLE 40 MG TABLET PO SCH (10:37)
[2022-06-15] MEDS: BUDESONIDE/FORMOTEROL 160-4.5 INHALER 6 GM INH SCH ×2 (10:37→20:58)
[2022-06-15] MEDS: LACTATED RINGERS 1,000 ML IV SCH (10:38)
[2022-06-15] MEDS: MUPIROCIN 2% OINT 22 GM TUBE TOP SCH (10:39)
[2022-06-15] MEDS: HEPARIN 5,000 UNIT/1 ML VIAL SUBCUT SCH ×2 (10:42→20:52)
[2022-06-15] MEDS: AZITHROMYCIN INJ 500 MG in SODIUM CHLORIDE 0.9% 250 ML IV SCH (10:59)
[2022-06-15] MEDS: METOCLOPRAMIDE 10 MG/10 ML UDCUP PO SCH ×3 (11:40→20:57)
[2022-06-15] MEDS: SPIRONOLACTONE 100 MG TABLET PO SCH (11:40)
[2022-06-15] MEDS: FUROSEMIDE 40 MG TABLET PO SCH (11:40)
[2022-06-15] MEDS ORDERED: ZINC OXIDE PASTE 113 GM TUBE TOP PRN (14:59)
[2022-06-15] MEDS: cefTRIAXone 1,000 MG in SODIUM CHLORIDE 0.9% 100 ML IV SCH (20:50)
[2022-06-15] MEDS: hydrOXYzine HCL 10 MG TABLET PO SCH (20:51)
[2022-06-15] MEDS: BETHANECHOL 10 MG TABLET PO SCH (20:51)
[2022-06-16] MEDS: ALBUTEROL/IPRATROPIUM 3 ML NEB RESP TX SCH ×4 (01:08→20:54)
[2022-06-16] MEDS: LEVOTHYROXINE 50 MCG TABLET PO SCH (05:56)
[2022-06-16 06:16] LABS: Albumin 2.5 G/DL (3.4-5.0); Bilirubin,Total 1.9 MG/DL (0.20-1.00); Calcium 9.3 MG/DL (8.5-10.1); Osmolality,Calculated 289.5 MOS/KG (273-304); Potassium 5.1 MMOL/L (3.5-5.1); Total Protein 6.8 G/DL (6.4-8.2)
[2022-06-16] MEDS: METOCLOPRAMIDE 10 MG/10 ML UDCUP PO SCH ×4 (09:52→21:57)
[2022-06-16] MEDS: predniSONE 20 MG TABLET PO SCH (09:52)
[2022-06-16] MEDS: PANTOPRAZOLE 40 MG TABLET PO SCH (09:53)
[2022-06-16] MEDS: FUROSEMIDE 40 MG TABLET PO SCH (09:56)
[2022-06-16] MEDS: FERROUS SULFATE 325 MG TABLET PO SCH ×2 (09:57→21:57)
[2022-06-16] MEDS: GABAPENTIN 300 MG CAPSULE PO SCH ×2 (09:57→21:57)
[2022-06-16] MEDS: ASCORBIC ACID 500 MG TABLET PO SCH (09:58)
[2022-06-16] MEDS: BUDESONIDE/FORMOTEROL 160-4.5 INHALER 6 GM INH SCH (09:58)
[2022-06-16] MEDS: RIFAXIMIN 550 MG TABLET PO SCH ×2 (10:00→21:57)
[2022-06-16] MEDS: SPIRONOLACTONE 100 MG TABLET PO SCH (10:01)
[2022-06-16] MEDS: BETHANECHOL 10 MG TABLET PO SCH ×2 (10:02→21:57)
[2022-06-16] MEDS: HEPARIN 5,000 UNIT/1 ML VIAL SUBCUT SCH ×2 (10:04→21:57)
[2022-06-16] MEDS: AZITHROMYCIN INJ 500 MG in SODIUM CHLORIDE 0.9% 250 ML IV SCH (10:06)
[2022-06-16] MEDS: MUPIROCIN 2% OINT 22 GM TUBE TOP SCH (12:43)
[2022-06-16] MEDS: hydrOXYzine HCL 10 MG TABLET PO SCH (21:57)
[2022-06-16] MEDS: HYDROXYCHLOROQUINE 200 MG TABLET PO SCH (21:57)
[2022-06-16] MEDS: cefTRIAXone 1,000 MG in SODIUM CHLORIDE 0.9% 100 ML IV SCH (21:58)
[2022-06-17] MEDS: ALBUTEROL/IPRATROPIUM 3 ML NEB RESP TX SCH ×2 (00:18→08:01)
[2022-06-17] MEDS: BUDESONIDE/FORMOTEROL 160-4.5 INHALER 6 GM INH SCH ×3 (00:36→20:57)
[2022-06-17] MEDS: LACTATED RINGERS 1,000 ML IV SCH ×2 (00:37→08:43)
[2022-06-17 04:53] LABS: Basophils % 0.2 % (0.0-0.8); Hematocrit 29.9 VOL% (35.7-47.0); Immature Granulocytes % 4.3 %; Immature Granulocytes Absolute 0.42 #; Lymphocytes # 0.3 10*3/uL (1.4-4.0); Lymphocytes % 3.3 % (21.3-54.2); Mean Corpuscular HGB Conc 26.8 GM/DL (32-36); Mean Corpuscular Volume 72.6 FL (87-102); Mean Platelet Volume 10.2 FL (9.6-12.0); Monocytes # 0.8 10*3/uL (0.11-0.8); Monocytes % 7.9 % (1.7-12.7); NRBC # 1.07 10*3/uL; Neutrophils % 84.3 % (38.7-73.9); Platelet Count 226 T/CUMM (130-400); Red Blood Count 4.12 MC/CUMM (3.8-5.5); Red Cell Distribution Width 23.1 % (9.3-17.3); White Blood Count 9.8 T/CUMM (4-12)
[2022-06-17 05:08] LABS: Albumin 2.5 G/DL (3.4-5.0); Bilirubin,Total 1.9 MG/DL (0.20-1.00); Calcium 9.6 MG/DL (8.5-10.1); Osmolality,Calculated 287.7 MOS/KG (273-304); Potassium 5.2 MMOL/L (3.5-5.1); Total Protein 6.8 G/DL (6.4-8.2)
[2022-06-17] MEDS: LEVOTHYROXINE 50 MCG TABLET PO SCH (06:05)
[2022-06-17 06:30] LABS: Lymphocytes 4 % (20-55); Nucleated Red Blood Cells 12 (0-5); Total Cells Counted 100
[2022-06-17 06:31] LABS: Platelet Estimate Normal
[2022-06-17 06:32] LABS: Anisocytosis 3+; Hypochromia 2+; Macrocytosis 1+; Microcytosis 1+; Polychromasia 1+; Tear Drop Cells Few
[2022-06-17] MEDS: METOCLOPRAMIDE 10 MG/10 ML UDCUP PO SCH ×4 (09:09→20:59)
[2022-06-17] MEDS: FERROUS SULFATE 325 MG TABLET PO SCH ×2 (09:10→21:36)
[2022-06-17] MEDS: PANTOPRAZOLE 40 MG TABLET PO SCH (09:11)
[2022-06-17] MEDS: predniSONE 20 MG TABLET PO SCH (09:11)
[2022-06-17] MEDS: SPIRONOLACTONE 100 MG TABLET PO SCH (09:11)
[2022-06-17] MEDS: HYDROXYCHLOROQUINE 200 MG TABLET PO SCH ×2 (09:11→21:37)
[2022-06-17] MEDS: ASCORBIC ACID 500 MG TABLET PO SCH (09:11)
[2022-06-17] MEDS: RIFAXIMIN 550 MG TABLET PO SCH ×2 (09:11→21:37)
[2022-06-17] MEDS: FUROSEMIDE 40 MG TABLET PO SCH (09:12)
[2022-06-17] MEDS: GABAPENTIN 300 MG CAPSULE PO SCH ×2 (09:16→21:36)
[2022-06-17] MEDS: BETHANECHOL 10 MG TABLET PO SCH ×2 (09:16→21:37)
[2022-06-17] MEDS: HEPARIN 5,000 UNIT/1 ML VIAL SUBCUT SCH ×2 (09:25→21:38)
[2022-06-17] MEDS: MUPIROCIN 2% OINT 22 GM TUBE TOP SCH (12:35)
[2022-06-17] MEDS ORDERED: ISOSORBIDE MONONITRATE 30 MG TABLET PO SCH (14:00)
[2022-06-17] MEDS: NIFEdipine 10 MG CAPSULE PO SCH ×2 (16:48→21:35)
[2022-06-17] MEDS: ONDANSETRON 4 MG/2 ML VIAL IV PRN (20:54)
[2022-06-17] MEDS ORDERED: ALPRAZolam 0.5 MG TABLET PO ONE (21:30)
[2022-06-17] MEDS: hydrOXYzine HCL 10 MG TABLET PO SCH (21:36)
[2022-06-18] MEDS ORDERED: EPINEPHrine 1 MG/10 ML SYRINGE IV ONE (00:15)
[2022-06-18] MEDS ORDERED: CALCIUM CHLORIDE 1,000 MG/10 ML SYRINGE IV ONE (00:16)
[2022-06-18] MEDS ORDERED: SODIUM BICARBONATE 50 MEQ/50 ML SYRINGE IV ONE (00:16)
[2022-06-18] MEDS ORDERED: DEXTROSE 50% 25 GM/50 ML SYRINGE IV ONE (00:20)
[2022-06-18] MEDS ORDERED: ATROPINE 1 MG/10 ML SYRINGE IV ONE (00:27)
[2022-06-18] MEDS ORDERED: DOPamine 800 MG/250 ML PREMIX IV ONE (00:29)
[2022-06-18] MEDS ORDERED: MAGNESIUM SULFATE 1 GM/2 ML VIAL IV ONE (00:33)
[2022-06-18] MEDS ORDERED: AMIODARONE 150 MG/3 ML VIAL IV ONE (00:35)
[2022-06-18 02:46] VITALS: BP 87/55
[2022-06-18] MEDS ORDERED: FUROSEMIDE 20 MG TABLET PO SCH (09:00)
== END 2022-06-18 04:00 | disposition expired | DRG 137 ==
LOC: N.ED 17:07 → N.TELEN 20:53 → SUATTDRO 20:53 → N.TELEN 06-10 02:04
PROVIDERS: ADMIT Family Medicine; ATTEND Emergency Medicine